=== PATIENT | male | born 1950 | race Caucasian/White ===

== ENCOUNTER 2020-07-24 10:33 | Outpatient (CLI) | payer MEDICARE ==
--- NOTE | 2020-07-24 11:18 | CT ---
CT HEAD WITHOUT IV CONTRAST COMPARISON: None HISTORY: Trouble walking straight. Dizziness. TECHNIQUE: Axial CT imaging at 5 mm intervals from vertex through skull base without contrast FINDINGS: There are scattered areas of diminished attenuation which are nonspecific but likely reflective of mi ld chronic small vessel ischemic changes. There is no evidence of an acute infarction, hemorrhage, mass effect, or midline shift. Mild cerebral volume loss is present. The ventricular system is normal in size, shape, and position for the degree of sulcal atrophy. Vascular calcifications are seen in the distal vertebral arteries and in the carotid siphons. Visualized paranasal sinuses are clear. Osseous structures appear intact. IMPRESSION: 1. No acute intracranial abnormality demonstrated. 2. Mild chronic small vessel ischemic changes and cerebral volume loss.
== END 2020-07-24 10:34 | disposition home or self-care (01) ==
LOC: BICCT 10:33
PROVIDERS: ATTEND Family Medicine
DX: R42 Dizziness and giddiness (principal); R26.9 Unspecified abnormalities of gait and mobility; I67.82 Cerebral ischemia
CPT/HCPCS: 70450

== ENCOUNTER 2020-08-25 09:17 | Outpatient (CLI) | payer MEDICARE ==
--- NOTE | 2020-08-25 11:01 | MRI ---
MRI of thecervical spine without contrast: 08/25/2020 COMPARISON:None available HISTORY:Numbness of bilateral shoulders, arms, legs, feet TECHNIQUE: Multiplanar multisequence MR imaging of thecervical spine without contrast Findings:The sagittal STIR imaging demonstrates no focal area of osseous marrow edema. No cervical spine anterolisthesis or retrolisthesis noted. C2-3: There is disc desiccation and minimal disc bulge with no central canal stenosis. There is moder ate left neural foraminal stenosis on the basis of facet and uncovertebral osteophyte formation. No right neural foraminal stenosis. C3-4: There is disc space narrowing with disc desiccation, disc bulge, and a small right paracentral disc protrusion. These findings lead to a moderate degree of central canal stenosis, particularly laterally on the right. There is prominent bilateral facet hypertrophy and hypertrophy of the uncover tebral joints, left greater than right, with mild right and severe left neural foraminal stenosis. C4-5: There is disc space narrowing with disc desiccation and disc bulge effacing the ventral thecal sac with mild mass effect on the cervical cord and severe associated central canal stenosis. Prominent bilateral facet hypertrophy and uncovertebral osteophyte formation with moderate/severe dinesh ateral neural foraminal stenosis, right greater than left. C5-6: There is disc space narrowing with disc desiccation with disc bulge effacing the ventral thecal sac and abutting the ventral aspect of the cord with a moderate/severe degree of central canal stenosis. Significant bilateral facet and uncovertebral osteophyte formation, left greater than right , with severe bilateral neural foraminal stenosis. C6-7: Bilateral facet hypertrophy. There is disc desiccation and mild disc bulge with mild central ca nal stenosis and mild/moderate bilateral neural foraminal stenosis, right greater than left. C7-T1: There is disc desiccation with no central canal stenosis. Bilateral facet hypertrophy noted wi th no significant neural foraminal stenosis. There is no focal area of abnormal signal intensity within the cervical cord. IMPRESSION:Significant multilevel cervical spine degenerative change as detailed above, most severe a t the C4-5 and C5-6 levels.
--- NOTE | 2020-08-25 11:29 | MRI ---
Exam: Brain MRI with and without contrast HISTORY: Transient ischemic attack COMPARISON: None FINDINGS: Gradient echo sequence: No hemorrhage Calvarium: Appropriate T1 marrow signal intensity Midline brain parenchyma: Unremarkable Cerebrum:No parenchymal mass, mass effect or midline shift. Brain volume is age-appropriate. Cortical courtney-white white matter differentiation is preserved. Minimal T2 and FLAIR white matter hyperintensities due to chronic small vessel ischemic change. Ventricles: No evidence of hydrocephalus. Sinuses and mastoid air cells: Right maxillary sinus mucus retention cysts. Minimal opacification of the right mastoid air cells. Diffusion: Central arterial flow is maintained. Absent restricted diffusion. Postcontrast images: No pathologic enhancement of the brain parenchyma. IMPRESSION: 1. Absent restricted diffusion. No acute infarct 2. No pathologic enhancement of the brain parenchyma 3. Minimal chronic small vessel ischemic changes of the white matter
[2020-08-25] MEDS ORDERED: Magnevist 469MG/ML 20 ML VIAL ONE (15:06)
== END 2020-08-25 09:18 | disposition home or self-care (01) ==
LOC: BICMRI 09:17
PROVIDERS: ATTEND Psychiatry & Neurology Neurology
DX: G45.9 Transient cerebral ischemic attack, unspecified (principal); I67.82 Cerebral ischemia; M47.812 Spondylosis without myelopathy or radiculopathy, cervical region
CPT/HCPCS: 70553; 72141; 82565; A9579

== ENCOUNTER 2020-10-18 10:58 | Outpatient (CLI) | payer MEDICARE ==
[2020-09-13 16:51] LABS: #Basophils 0.1 10x3/uL (0.0-0.2); #Eosinphils 0.2 10x3/uL (0.0-0.5); #Monocytes 0.7 10x3/uL (0.0-1.1); #Neutrophils 3.9 10x3/uL (1.5-8.4); %Basophils 1.6 % (0.0-2.0); %Eosinophils 3.6 % (0.0-6.0); %Lymphocytes 25.9 % (18.0-47.0); %Monocytes 10.9 % (0.0-10.0); %Neutrophils 57.6 % (40.0-75.0); Hemoglobin 14.9 g/dL (13.5-17.5); Mean Corpuscular HGB CONC 32.8 g/dL (32.0-36.0); Mean Corpuscular Hemoglobin 30.6 pg (27.0-33.0); Mean Corpuscular Volume 93.2 fl (81.2-95.1); Mean Platelet Volume 13.8 fl (7.4-10.4); Platelet Count 178 10x3/uL (150-450); RBC Distribution Width 12.7 % (11.5-14.5); Red Blood Cell (RBC) Count 4.87 10x6/uL (4.32-5.72); White Blood Cell (WBC) Count 6.7 10x3/uL (3.5-10.5)
[2020-09-13 17:12] LABS: Anion Gap 14 mmol/L (10-20); BUN (Urea Nitrogen) 15 mg/dL (8.4-25.7); Calc. Creatinine Clearance 0 mL/min (70-130); Calcium 9.5 mg/dL (7.8-10.44); Carbon Dioxide 29 mmol/L (23-31); Chloride 103 mmol/L (98-107); Glucose 144 mg/dL (83-110); Potassium 5.2 mmol/L (3.5-5.1); Sodium 141 mmol/L (136-145)
[2020-09-14 08:31] LABS: SARS-CoV-2 PCR by NAA Indeterminate (NotDetected)
[2020-09-16 05:48] LABS: SARS-CoV-2 PCR by NAA Not Detected (NotDetected)
[2020-10-18 14:14] LABS: Anion Gap 11 mmol/L (10-20); BUN (Urea Nitrogen) 18 mg/dL (8.4-25.7); Calc. Creatinine Clearance 0 mL/min (70-130); Calcium 8.9 mg/dL (7.8-10.44); Carbon Dioxide 27 mmol/L (23-31); Chloride 104 mmol/L (98-107); Glucose 256 mg/dL (83-110); Potassium 4.9 mmol/L (3.5-5.1); Sodium 137 mmol/L (136-145)
[2020-10-18 14:49] LABS: #Basophils 0.1 10x3/uL (0.0-0.2); #Eosinphils 0.3 10x3/uL (0.0-0.5); #Monocytes 0.6 10x3/uL (0.0-1.1); #Neutrophils 3.7 10x3/uL (1.5-8.4); %Basophils 1.3 % (0.0-2.0); %Eosinophils 4.8 % (0.0-6.0); %Lymphocytes 22.2 % (18.0-47.0); %Monocytes 9.9 % (0.0-10.0); %Neutrophils 61.1 % (40.0-75.0); Hemoglobin 14.4 g/dL (13.5-17.5); Mean Corpuscular Hemoglobin 30.6 pg (27.0-33.0); Mean Corpuscular Volume 92.6 fl (81.2-95.1); Mean Platelet Volume 13.5 fl (7.4-10.4); Platelet Count 147 10x3/uL (150-450); RBC Distribution Width 12.5 % (11.5-14.5); Red Blood Cell (RBC) Count 4.71 10x6/uL (4.32-5.72)
[2020-10-18 17:25] LABS: Platelet Morphology Comment Appears Adequate
[2020-10-18 22:07] LABS: SARS-CoV-2 PCR by NAA Not Detected (NotDetected)
== END 2020-10-18 10:59 | disposition home or self-care (01) ==
LOC: LABBT 10:58
PROVIDERS: ATTEND Internal Medicine Cardiovascular Disease
DX: Z01.818 Encounter for other preprocedural examination (principal); Z20.822 Contact with and (suspected) exposure to COVID-19
CPT/HCPCS: 80048; 85025; 93005; U0003 ×2; U0005 ×2; 87635; 93010

== ENCOUNTER 2020-10-23 06:00 | Day surgery (SDC) | payer MEDICARE ==
[2020-10-20 11:40] VITALS: BMI 29.5
[2020-10-23] MEDS ORDERED: PROPOFOL 200 MG/20 ML VIAL ONE (08:03)
[2020-10-23] MEDS ORDERED: Lidocaine 1% PF 5 ML VIAL ONE (08:03)
== END 2020-10-23 10:21 | disposition home or self-care (01) ==
LOC: CCL 06:00
PROVIDERS: ATTEND Internal Medicine Cardiovascular Disease
PROC: B24BZZ4 Ultrasonography of Heart with Aorta, Transesophageal (ICD-10-PCS; principal; 2020-10-23)
DX: I08.3 Combined rheumatic disorders of mitral, aortic and tricuspid valves (principal); I70.0 Atherosclerosis of aorta; I48.0 Paroxysmal atrial fibrillation; I48.92 Unspecified atrial flutter; E11.9 Type 2 diabetes mellitus without complications; E78.00 Pure hypercholesterolemia, unspecified; I10 Essential (primary) hypertension; E03.9 Hypothyroidism, unspecified; G47.33 Obstructive sleep apnea (adult) (pediatric); G40.909 Epilepsy, unspecified, not intractable, without status epilepticus; E66.9 Obesity, unspecified; Z68.29 Body mass index [BMI] 29.0-29.9, adult; Z79.01 Long term (current) use of anticoagulants; Z79.82 Long term (current) use of aspirin; Z79.84 Long term (current) use of oral hypoglycemic drugs; Z79.899 Other long term (current) drug therapy
CPT/HCPCS: 92960; 93005; 93010; 93312; J2704

== ENCOUNTER 2021-03-04 11:36 | Inpatient (IN) | payer MEDICARE ==
[2021-03-04 12:22] LABS: #Lymphocytes 0.9 thou/uL (1.20-3.40); #Monocytes 2.2 thou/uL (0.11-0.59); #Neutrophils 11.7 thou/uL (1.40-6.50); %Basophils 0.1 % (0.0-1.0); %Eosinophils 0.1 % (0.0-10.0); %Lymphocytes 6.2 % (21.0-51.0); %Monocytes 14.8 % (0.0-10.0); %Neutrophils 78.8 % (42.0-75.0); Hemoglobin 16.5 g/dL (14.0-18.0); Mean Corpuscular HGB CONC 33.8 g/dL (32.0-36.0); Mean Corpuscular Hemoglobin 31.4 pg (27.0-31.0); Mean Corpuscular Volume 92.8 fL (78.0-98.0); Mean Platelet Volume 10.8 fL (7.4-10.4); Platelet Count 275 thou/uL (130-400); Red Blood Cell (RBC) Count 5.25 mill/uL (4.70-6.10); White Blood Cell (WBC) Count 14.8 thou/uL (4.8-10.8)
[2021-03-04 12:43] LABS: ALT (SGPT) 35 U/L (8-55); AST (SGOT) 20 U/L (5-34); Albumin 3.4 g/dL (3.4-4.8); Alkaline Phosphatase 65 U/L (40-110); Anion Gap 16 mmol/L (10-20); BUN (Urea Nitrogen) 33 mg/dL (8.4-25.7); Bilirubin, Total 0.8 mg/dL (0.2-1.2); CK (CPK) 131 U/L (30-200); Calc. Creatinine Clearance 0 mL/min (70-130); Calcium 8.4 mg/dL (7.8-10.44); Carbon Dioxide 24 mmol/L (23-31); Chloride 105 mmol/L (98-107); Globulin 2.7 g/dL (2.4-3.5); Glucose 335 mg/dL (83-110); Lipase 11 U/L (8-78); Potassium 4.3 mmol/L (3.5-5.1); Protein, Total 6.1 g/dL (5.8-8.1); Sodium 141 mmol/L (136-145)
[2021-03-04 13:21] LABS: Bilirubin Negative (Negative); Blood, Urine Negative (Negative); Clarity Clear (Clear); Glucose, Urine (Dipstick) >=1000 mg/dL (Negative); Ketone, Urine 40 mg/dL (Negative); Leukocyte Negative Leu/uL (Negative); Nitrite Negative (Negative); Protein, Urine (Dipstick) 10 mg/dL (Neg-Trace); Urobilinogen Normal mg/dL (Less than 2); pH, Urine 5.5 (5.0-9.0)
[2021-03-04] MEDS ORDERED: Cefepime 2 GM VIAL ONE ×2 (13:23→13:34)
[2021-03-04] MEDS ORDERED: Vancomycin 1 GM/200 ML BAG ONE (13:23)
[2021-03-04 13:37] LABS: Magnesium 2.4 mg/dL (1.6-2.6)
[2021-03-04] MEDS ORDERED: Meropenem 1 GM in Sodium Chloride 0.9% 100 ML IVPB SCH (14:15)
[2021-03-04] MEDS ORDERED: MEROPENEM 1 GM/50 ML 1 GM in Premix Bag 1 BAG IVPB SCH ×3 (15:00→23:00)
[2021-03-04 15:24] LABS: Lactic Acid 2.1 mmol/L (0.5-2.2)
[2021-03-04 17:48] LABS: Troponin I 0.011 ng/mL (< 0.028)
[2021-03-04] MEDS ORDERED: Dextrose 50% Abboject 50 ML SYRINGE SLOW IVP PRN (18:21)
[2021-03-04] MEDS ORDERED: Dextrose 5% in Water 1,000 ML IV PRN (18:21)
[2021-03-04] MEDS ORDERED: Acetaminophen 325 MG TAB PO PRN (18:22)
[2021-03-04] MEDS ORDERED: Bisacodyl 10 MG SUPP PR PRN (18:22)
[2021-03-04] MEDS ORDERED: Senokot S 8.6-50 MG TAB PO PRN (18:22)
[2021-03-04] MEDS ORDERED: Acetaminophen 650 MG Suppository PR PRN (18:22)
[2021-03-04] MEDS ORDERED: Ondansetron PF 4 MG/2 ML Vial IVP PRN (18:22)
[2021-03-04] MEDS ORDERED: Ondansetron ODT 4 MG TAB PO PRN (18:22)
[2021-03-04] MEDS ORDERED: Calcium Carbonate 500 MG ChewTAB PO PRN (18:22)
[2021-03-04] MEDS ORDERED: D5W-AA 4.25% with LYTES 1,000 ML BAG IV SCH (18:30)
[2021-03-04] MEDS ORDERED: Electrolyte Replacement Protocol 1 EACH FS SCH (18:30)
[2021-03-04] MEDS ORDERED: D5W-AA 4.25% with LYTES 1,000 ML IV SCH (19:30)
[2021-03-04] MEDS: Metoprolol Tartrate 5 MG/5 ML VIAL IVP SCH ×2 (20:08→21:33)
[2021-03-04] MEDS ORDERED: Metoprolol Tartrate 5 MG/5 ML VIAL IVP SCH ×2 (21:00→21:30)
[2021-03-04] MEDS ORDERED: Famotidine/PF 20 mg/2ml Vial SLOW IVP SCH (21:00)
[2021-03-04] MEDS: Pantoprazole 40 MG VIAL IVP SCH (21:42)
[2021-03-04] MEDS: Insulin Regular 300 UNITS/3 ML VIAL SC PRN (21:58)
[2021-03-04] MEDS ORDERED: Lorazepam 2 MG/ML VIAL SLOW IVP SCH (22:00)
[2021-03-04] MEDS: Famotidine 20 MG TAB PO SCH (23:23)
[2021-03-04] MEDS: Apixaban 5 MG TAB PO SCH (23:23)
[2021-03-04] MEDS: Amiodarone 200 MG TAB PO SCH (23:23)
[2021-03-05] MEDS: Vancomycin 1 GM in Premix Bag 1 BAG IVPB SCH ×2 (02:07→14:49)
[2021-03-05] MEDS: MEROPENEM 1 GM/50 ML 1 GM in Premix Bag 1 BAG IVPB SCH ×3 (02:10→17:40)
[2021-03-05 05:02] LABS: #Eosinphils 0.1 thou/uL (0.0-0.7); #Monocytes 1.2 thou/uL (0.11-0.59); #Neutrophils 9.3 thou/uL (1.40-6.50); %Basophils 0.1 % (0.0-1.0); %Eosinophils 0.6 % (0.0-10.0); %Lymphocytes 8.4 % (21.0-51.0); %Monocytes 10.4 % (0.0-10.0); %Neutrophils 80.6 % (42.0-75.0); Hemoglobin 13.7 g/dL (14.0-18.0); Mean Corpuscular HGB CONC 32.5 g/dL (32.0-36.0); Mean Corpuscular Hemoglobin 30.6 pg (27.0-31.0); Mean Corpuscular Volume 94.2 fL (78.0-98.0); Mean Platelet Volume 10.8 fL (7.4-10.4); Platelet Count 191 thou/uL (130-400); Red Blood Cell (RBC) Count 4.49 mill/uL (4.70-6.10); White Blood Cell (WBC) Count 11.5 thou/uL (4.8-10.8)
[2021-03-05 05:26] LABS: Anion Gap 9 mmol/L (10-20); BUN (Urea Nitrogen) 26 mg/dL (8.4-25.7); Calc. Creatinine Clearance 102 mL/min (70-130); Carbon Dioxide 26 mmol/L (23-31); Chloride 105 mmol/L (98-107); Glucose 359 mg/dL (83-110); Magnesium 2.2 mg/dL (1.6-2.6); Phosphorus 3.2 mg/dL (2.3-4.7); Potassium 3.9 mmol/L (3.5-5.1); Sodium 136 mmol/L (136-145)
[2021-03-05] MEDS: Insulin Regular 300 UNITS/3 ML VIAL SC PRN ×3 (06:09→17:40)
[2021-03-05] MEDS: Levothyroxine Sodium 75 MCG TAB PO SCH (06:16)
[2021-03-05] MEDS ORDERED: Multivit, Therapeutic 1 TAB PO SCH (09:00)
[2021-03-05] MEDS: Lantus 1000 UNITS/10 ML VIAL SC SCH (09:54)
[2021-03-05] MEDS: Amiodarone 200 MG TAB PO SCH ×2 (11:55→22:30)
[2021-03-05] MEDS: Apixaban 5 MG TAB PO SCH ×2 (11:55→22:30)
[2021-03-05] MEDS: Famotidine 20 MG TAB PO SCH ×2 (11:55→22:30)
[2021-03-05] MEDS: Multivit, Therapeutic 1 TAB PO SCH ×2 (12:07→12:08)
[2021-03-05] MEDS: Folic Acid 1 MG TAB PO SCH (12:07)
[2021-03-05] MEDS: Aspirin 81 mg Enteric Coated Tablet PO SCH (12:07)
[2021-03-05] MEDS: Thiamine 100 MG TAB PO SCH (12:08)
[2021-03-05] MEDS: pyridOXINE 50 MG (B6) TAB PO SCH (12:08)
[2021-03-05] MEDS: Pantoprazole 40 MG VIAL IVP SCH (22:30)
[2021-03-06] MEDS: Metoprolol Tartrate 5 MG/5 ML VIAL IVP SCH (00:13)
[2021-03-06 01:34] LABS: Vancomycin, Trough 12.1 ug/mL
[2021-03-06] MEDS: MEROPENEM 1 GM/50 ML 1 GM in Premix Bag 1 BAG IVPB SCH ×3 (02:05→17:48)
[2021-03-06] MEDS: VANCOMYCIN 1.25 GM/250 ML BAG 1.25 GM in Premix Bag 1 BAG IVPB SCH ×2 (02:07→15:01)
[2021-03-06] MEDS ORDERED: Metoprolol Tartrate 25 MG TAB PO SCH (03:00)
[2021-03-06] MEDS: Melatonin 3 MG TAB PO PRN (03:39)
[2021-03-06 05:24] LABS: Hemoglobin A1c 7.4 % (4.0-6.0)
[2021-03-06 05:36] LABS: #Eosinphils 0.4 thou/uL (0.0-0.7); #Lymphocytes 1.5 thou/uL (1.20-3.40); #Neutrophils 10.1 thou/uL (1.40-6.50); %Basophils 0.1 % (0.0-1.0); %Lymphocytes 11.5 % (21.0-51.0); %Monocytes 7.4 % (0.0-10.0); %Neutrophils 77.9 % (42.0-75.0); Hemoglobin 14.5 g/dL (14.0-18.0); Mean Corpuscular HGB CONC 32.7 g/dL (32.0-36.0); Mean Corpuscular Hemoglobin 30.7 pg (27.0-31.0); Mean Corpuscular Volume 93.9 fL (78.0-98.0); Platelet Count 169 thou/uL (130-400); RBC Distribution Width 12.7 % (11.5-14.5); Red Blood Cell (RBC) Count 4.72 mill/uL (4.70-6.10); White Blood Cell (WBC) Count 12.9 thou/uL (4.8-10.8)
[2021-03-06 05:44] LABS: ALT (SGPT) 26 U/L (8-55); AST (SGOT) 22 U/L (5-34); Albumin 2.6 g/dL (3.4-4.8); Alkaline Phosphatase 53 U/L (40-110); Anion Gap 10 mmol/L (10-20); BUN (Urea Nitrogen) 20 mg/dL (8.4-25.7); Bilirubin, Total 0.9 mg/dL (0.2-1.2); Calc. Creatinine Clearance 120 mL/min (70-130); Carbon Dioxide 27 mmol/L (23-31); Chloride 101 mmol/L (98-107); Globulin 2.3 g/dL (2.4-3.5); Glucose 144 mg/dL (83-110); Phosphorus 3.4 mg/dL (2.3-4.7); Potassium 3.7 mmol/L (3.5-5.1); Protein, Total 4.9 g/dL (5.8-8.1); Sodium 134 mmol/L (136-145)
[2021-03-06] MEDS: Levothyroxine Sodium 75 MCG TAB PO SCH (06:08)
[2021-03-06] MEDS: Aspirin 81 mg Enteric Coated Tablet PO SCH (08:59)
[2021-03-06] MEDS: Amiodarone 200 MG TAB PO SCH ×2 (08:59→22:40)
[2021-03-06] MEDS: pyridOXINE 50 MG (B6) TAB PO SCH (08:59)
[2021-03-06] MEDS: Thiamine 100 MG TAB PO SCH (08:59)
[2021-03-06] MEDS: Apixaban 5 MG TAB PO SCH ×2 (09:00→22:39)
[2021-03-06] MEDS: Famotidine 20 MG TAB PO SCH ×2 (09:00→22:40)
[2021-03-06] MEDS: Folic Acid 1 MG TAB PO SCH (09:00)
[2021-03-06] MEDS: Lantus 1000 UNITS/10 ML VIAL SC SCH (09:01)
[2021-03-06] MEDS: Insulin Regular 300 UNITS/3 ML VIAL SC PRN ×2 (12:12→22:41)
[2021-03-06] MEDS: Pantoprazole 40 MG VIAL IVP SCH (22:40)
[2021-03-07] MEDS: Metoprolol Tartrate 5 MG/5 ML VIAL IVP SCH (02:26)
[2021-03-07] MEDS: MEROPENEM 1 GM/50 ML 1 GM in Premix Bag 1 BAG IVPB SCH ×2 (02:49→10:56)
[2021-03-07] MEDS: VANCOMYCIN 1.25 GM/250 ML BAG 1.25 GM in Premix Bag 1 BAG IVPB SCH (02:49)
[2021-03-07 05:25] LABS: #Eosinphils 0.3 thou/uL (0.0-0.7); #Lymphocytes 1.6 thou/uL (1.20-3.40); #Monocytes 0.8 thou/uL (0.11-0.59); #Neutrophils 11.2 thou/uL (1.40-6.50); %Basophils 0.1 % (0.0-1.0); %Eosinophils 2.4 % (0.0-10.0); %Lymphocytes 11.7 % (21.0-51.0); %Monocytes 5.4 % (0.0-10.0); %Neutrophils 80.5 % (42.0-75.0); Hemoglobin 15.6 g/dL (14.0-18.0); Mean Corpuscular HGB CONC 32.1 g/dL (32.0-36.0); Mean Corpuscular Hemoglobin 30.3 pg (27.0-31.0); Mean Corpuscular Volume 94.1 fL (78.0-98.0); Mean Platelet Volume 10.9 fL (7.4-10.4); Platelet Count 173 thou/uL (130-400); Red Blood Cell (RBC) Count 5.16 mill/uL (4.70-6.10); White Blood Cell (WBC) Count 13.9 thou/uL (4.8-10.8)
[2021-03-07] MEDS: Levothyroxine Sodium 75 MCG TAB PO SCH (05:32)
[2021-03-07 05:51] LABS: Anion Gap 9 mmol/L (10-20); BUN (Urea Nitrogen) 17 mg/dL (8.4-25.7); Calc. Creatinine Clearance 103 mL/min (70-130); Carbon Dioxide 29 mmol/L (23-31); Chloride 99 mmol/L (98-107); Glucose 151 mg/dL (83-110); Sodium 133 mmol/L (136-145)
[2021-03-07] MEDS: Insulin Regular 300 UNITS/3 ML VIAL SC PRN ×4 (06:03→21:15)
[2021-03-07] MEDS: Aspirin 81 mg Enteric Coated Tablet PO SCH (08:33)
[2021-03-07] MEDS: Apixaban 5 MG TAB PO SCH ×2 (08:33→21:13)
[2021-03-07] MEDS: Multivit, Therapeutic 1 TAB PO SCH (08:33)
[2021-03-07] MEDS: pyridOXINE 50 MG (B6) TAB PO SCH (08:33)
[2021-03-07] MEDS: Famotidine 20 MG TAB PO SCH ×2 (08:33→21:13)
[2021-03-07] MEDS: Folic Acid 1 MG TAB PO SCH (08:33)
[2021-03-07] MEDS: Amiodarone 200 MG TAB PO SCH ×2 (08:34→21:13)
[2021-03-07] MEDS: Thiamine 100 MG TAB PO SCH (08:34)
[2021-03-07] MEDS: Lantus 1000 UNITS/10 ML VIAL SC SCH (08:35)
[2021-03-07 13:54] VITALS: BMI 27.3
[2021-03-07] MEDS: Pantoprazole 40 MG VIAL IVP SCH (21:13)
[2021-03-07] MEDS: Metoprolol Tartrate 25 MG TAB PO SCH (21:36)
[2021-03-08] MEDS: Levothyroxine Sodium 75 MCG TAB PO SCH (06:44)
[2021-03-08] MEDS: Insulin Regular 300 UNITS/3 ML VIAL SC PRN ×3 (06:48→17:12)
[2021-03-08] MEDS: Apixaban 5 MG TAB PO SCH ×2 (09:04→21:28)
[2021-03-08] MEDS: Aspirin 81 mg Enteric Coated Tablet PO SCH (09:04)
[2021-03-08] MEDS: Famotidine 20 MG TAB PO SCH ×2 (09:04→21:27)
[2021-03-08] MEDS: Metoprolol Tartrate 25 MG TAB PO SCH ×2 (09:04→21:28)
[2021-03-08] MEDS: Thiamine 100 MG TAB PO SCH (09:04)
[2021-03-08] MEDS: Multivit, Therapeutic 1 TAB PO SCH (09:04)
[2021-03-08] MEDS: Amiodarone 200 MG TAB PO SCH ×2 (09:04→21:28)
[2021-03-08] MEDS: Folic Acid 1 MG TAB PO SCH (09:04)
[2021-03-08] MEDS: pyridOXINE 50 MG (B6) TAB PO SCH (09:04)
[2021-03-08] MEDS: Lantus 1000 UNITS/10 ML VIAL SC SCH (09:05)
[2021-03-08 15:04] LABS: SARS-CoV-2 NAA Rapid Test Not Detected (NotDetected)
[2021-03-08] MEDS: Pantoprazole 40 MG VIAL IVP SCH (21:27)
[2021-03-09] MEDS: Levothyroxine Sodium 75 MCG TAB PO SCH (06:14)
[2021-03-09] MEDS: Folic Acid 1 MG TAB PO SCH (09:56)
[2021-03-09] MEDS: Amiodarone 200 MG TAB PO SCH ×2 (09:56→20:08)
[2021-03-09] MEDS: pyridOXINE 50 MG (B6) TAB PO SCH (09:56)
[2021-03-09] MEDS: Apixaban 5 MG TAB PO SCH ×2 (09:56→20:08)
[2021-03-09] MEDS: Multivit, Therapeutic 1 TAB PO SCH (09:56)
[2021-03-09] MEDS: Aspirin 81 mg Enteric Coated Tablet PO SCH (09:56)
[2021-03-09] MEDS: Thiamine 100 MG TAB PO SCH (09:56)
[2021-03-09] MEDS: Metoprolol Tartrate 25 MG TAB PO SCH ×2 (09:56→20:08)
[2021-03-09] MEDS: Famotidine 20 MG TAB PO SCH (09:56)
[2021-03-09] MEDS: Lantus 1000 UNITS/10 ML VIAL SC SCH (09:58)
[2021-03-09] MEDS: Insulin Regular 300 UNITS/3 ML VIAL SC PRN ×2 (17:09→21:40)
[2021-03-10] MEDS: Levothyroxine Sodium 75 MCG TAB PO SCH (06:05)
[2021-03-10] MEDS: Amiodarone 200 MG TAB PO SCH ×2 (09:16→20:38)
[2021-03-10] MEDS: Metoprolol Tartrate 25 MG TAB PO SCH ×2 (09:16→20:38)
[2021-03-10] MEDS: Folic Acid 1 MG TAB PO SCH (09:16)
[2021-03-10] MEDS: pyridOXINE 50 MG (B6) TAB PO SCH (09:16)
[2021-03-10] MEDS: Multivit, Therapeutic 1 TAB PO SCH (09:16)
[2021-03-10] MEDS: Aspirin 81 mg Enteric Coated Tablet PO SCH (09:16)
[2021-03-10] MEDS: Apixaban 5 MG TAB PO SCH ×2 (09:16→20:38)
[2021-03-10] MEDS: Thiamine 100 MG TAB PO SCH (09:16)
[2021-03-10] MEDS: Lantus 1000 UNITS/10 ML VIAL SC SCH (09:21)
[2021-03-10] MEDS: Insulin Regular 300 UNITS/3 ML VIAL SC PRN ×2 (11:13→17:31)
[2021-03-10] MEDS: ALPRAZolam 0.25 MG TAB PO PRN (12:26)
[2021-03-10] MEDS: Melatonin 3 MG TAB PO PRN (22:32)
[2021-03-11 02:39] LABS: #Eosinphils 0.2 thou/uL (0.0-0.7); #Lymphocytes 1.7 thou/uL (1.20-3.40); #Monocytes 0.8 thou/uL (0.11-0.59); #Neutrophils 6.6 thou/uL (1.40-6.50); %Basophils 0.5 % (0.0-1.0); %Lymphocytes 18.2 % (21.0-51.0); %Neutrophils 70.3 % (42.0-75.0); Hemoglobin 16.5 g/dL (14.0-18.0); Mean Corpuscular HGB CONC 34.4 g/dL (32.0-36.0); Mean Corpuscular Hemoglobin 31.7 pg (27.0-31.0); Mean Corpuscular Volume 92.3 fL (78.0-98.0); Mean Platelet Volume 11.7 fL (7.4-10.4); Platelet Count 158 thou/uL (130-400); RBC Distribution Width 13.2 % (11.5-14.5); White Blood Cell (WBC) Count 9.4 thou/uL (4.8-10.8)
[2021-03-11 02:56] LABS: Anion Gap 10 mmol/L (10-20); BUN (Urea Nitrogen) 16 mg/dL (8.4-25.7); Calc. Creatinine Clearance 93 mL/min (70-130); Calcium 8.6 mg/dL (7.8-10.44); Carbon Dioxide 29 mmol/L (23-31); Chloride 98 mmol/L (98-107); Glucose 183 mg/dL (83-110); Potassium 4.2 mmol/L (3.5-5.1); Sodium 133 mmol/L (136-145)
[2021-03-11] MEDS: Levothyroxine Sodium 75 MCG TAB PO SCH (05:44)
[2021-03-11] MEDS: Insulin Regular 300 UNITS/3 ML VIAL SC PRN ×4 (05:46→21:29)
[2021-03-11] MEDS: Amiodarone 200 MG TAB PO SCH ×2 (10:07→20:23)
[2021-03-11] MEDS: Apixaban 5 MG TAB PO SCH ×2 (10:07→20:23)
[2021-03-11] MEDS: Aspirin 81 mg Enteric Coated Tablet PO SCH (10:07)
[2021-03-11] MEDS: Multivit, Therapeutic 1 TAB PO SCH (10:07)
[2021-03-11] MEDS: Folic Acid 1 MG TAB PO SCH (10:08)
[2021-03-11] MEDS: pyridOXINE 50 MG (B6) TAB PO SCH (10:08)
[2021-03-11] MEDS: Metoprolol Tartrate 25 MG TAB PO SCH ×2 (10:08→20:23)
[2021-03-11] MEDS: Thiamine 100 MG TAB PO SCH (10:08)
[2021-03-11] MEDS: Lantus 1000 UNITS/10 ML VIAL SC SCH (10:08)
[2021-03-11] MEDS: ALPRAZolam 0.25 MG TAB PO PRN (22:44)
[2021-03-12] MEDS: Levothyroxine Sodium 75 MCG TAB PO SCH (05:27)
[2021-03-12] MEDS: Aspirin 81 mg Enteric Coated Tablet PO SCH (08:04)
[2021-03-12] MEDS: Apixaban 5 MG TAB PO SCH (08:04)
[2021-03-12] MEDS: Amiodarone 200 MG TAB PO SCH (08:04)
[2021-03-12] MEDS: pyridOXINE 50 MG (B6) TAB PO SCH (08:05)
[2021-03-12] MEDS: Folic Acid 1 MG TAB PO SCH (08:05)
[2021-03-12] MEDS: Multivit, Therapeutic 1 TAB PO SCH (08:05)
[2021-03-12] MEDS: Metoprolol Tartrate 25 MG TAB PO SCH (08:05)
[2021-03-12] MEDS: Thiamine 100 MG TAB PO SCH (08:05)
[2021-03-12] MEDS: Lantus 1000 UNITS/10 ML VIAL SC SCH (08:14)
[2021-03-12] MEDS: Insulin Regular 300 UNITS/3 ML VIAL SC PRN (11:29)
[2021-03-12 15:02] VITALS: BP 116/73; TEMP 98.1
== END 2021-03-12 16:45 | DRG 871 ==
LOC: ERS 11:36 → 2NO 13:26
PROVIDERS: ADMIT Internal Medicine; ATTEND Internal Medicine
PROC: 5A09357 Assistance with Respiratory Ventilation, Less than 24 Consecutive Hours, Continuous Positive Airway Pressure (ICD-10-PCS; principal; 2021-03-04)
DX: A41.9 Sepsis, unspecified organism (principal); Z20.822 Contact with and (suspected) exposure to COVID-19; G92 Toxic encephalopathy; J15.9 Unspecified bacterial pneumonia; E87.2 Acidosis; E87.1 Hypo-osmolality and hyponatremia; I48.20 Chronic atrial fibrillation, unspecified; I48.92 Unspecified atrial flutter; R65.20 Severe sepsis without septic shock; T73.0XXA Starvation, initial encounter; E53.8 Deficiency of other specified B group vitamins; E88.09 Other disorders of plasma-protein metabolism, not elsewhere classified; E86.0 Dehydration; E78.5 Hyperlipidemia, unspecified; I10 Essential (primary) hypertension; F41.9 Anxiety disorder, unspecified; G47.00 Insomnia, unspecified; E03.9 Hypothyroidism, unspecified; G47.33 Obstructive sleep apnea (adult) (pediatric); E11.65 Type 2 diabetes mellitus with hyperglycemia; R29.6 Repeated falls; R09.02 Hypoxemia; M50.30 Other cervical disc degeneration, unspecified cervical region; Z86.16 Personal history of COVID-19; Z28.21 Immunization not carried out because of patient refusal; Z87.01 Personal history of pneumonia (recurrent); Z79.899 Other long term (current) drug therapy; Z79.890 Hormone replacement therapy; Z79.01 Long term (current) use of anticoagulants; Z79.82 Long term (current) use of aspirin; Z79.84 Long term (current) use of oral hypoglycemic drugs; Z90.89 Acquired absence of other organs
CPT/HCPCS: 36415; 36416; 51701; 70450; 71045; 80048; 80053; 80202; 81003; 82010; 82140; 82533; 82550; 82607; 82746; 83036; 83605; 83690; 83735; 83880; 84100; 84145; 84443; 84484; 85025; 86140; 87040; 93005; 93010; 94640; 94660; 96365; 96366; C9113; J0692; J1815; J1956; J2060; J2185; J3370; J7620; U0002; U0005

== ENCOUNTER 2021-04-25 09:31 | Emergency (ER) | payer MEDICARE ==
[2021-04-25 10:55] LABS: #Eosinphils 0.2 thou/uL (0.0-0.7); #Lymphocytes 1.6 thou/uL (1.20-3.40); #Monocytes 0.8 thou/uL (0.11-0.59); #Neutrophils 5.2 thou/uL (1.40-6.50); %Basophils 0.3 % (0.0-1.0); %Eosinophils 2.2 % (0.0-10.0); %Lymphocytes 20.2 % (21.0-51.0); %Monocytes 10.8 % (0.0-10.0); %Neutrophils 66.5 % (42.0-75.0); Hemoglobin 14.2 g/dL (14.0-18.0); Mean Corpuscular HGB CONC 32.5 g/dL (32.0-36.0); Mean Corpuscular Hemoglobin 30.7 pg (27.0-31.0); Mean Corpuscular Volume 94.5 fL (78.0-98.0); Mean Platelet Volume 10.9 fL (7.4-10.4); Platelet Count 175 thou/uL (130-400); Red Blood Cell (RBC) Count 4.63 mill/uL (4.70-6.10); White Blood Cell (WBC) Count 7.8 thou/uL (4.8-10.8)
[2021-04-25 11:15] LABS: ALT (SGPT) 25 U/L (8-55); AST (SGOT) 16 U/L (5-34); Albumin 3.6 g/dL (3.4-4.8); Alkaline Phosphatase 86 U/L (40-110); Anion Gap 15 mmol/L (10-20); BUN (Urea Nitrogen) 14 mg/dL (8.4-25.7); Bilirubin, Total 0.5 mg/dL (0.2-1.2); Calc. Creatinine Clearance 0 mL/min (70-130); Calcium 9.2 mg/dL (7.8-10.44); Carbon Dioxide 26 mmol/L (23-31); Chloride 99 mmol/L (98-107); Globulin 2.5 g/dL (2.4-3.5); Glucose 160 mg/dL (83-110); Protein, Total 6.1 g/dL (5.8-8.1); Sodium 136 mmol/L (136-145)
[2021-04-25 11:16] LABS: Acetaminophen Less than 6.0 mcg/mL (10.0-30.0); Alcohol Less than 10 mg/dL (Less than 10); Salicylate Less than 8.0 mg/dL (15.0-30.0)
[2021-04-25 12:24] LABS: Amphetamine Not Detected (NotDetected); Barbiturates Screen Not Detected (NotDetected); Benzodiazepine Screen Not Detected (NotDetected); Cocaine Metabolite Screen Not Detected (NotDetected); Methadone Not Detected (NotDetected); Methamphetamine Not Detected (NotDetected); Opiate Screen Not Detected (NotDetected); Oxycodone Screen Not Detected (NotDetected); Phencyclidine (PCP) Not Detected (NotDetected); THC/Cannabinoid Screen Not Detected (NotDetected); Tricyclic Screen Not Detected (NotDetected)
[2021-04-25 12:32] LABS: Bilirubin Negative (Negative); Blood, Urine Negative (Negative); Clarity Clear (Clear); Glucose, Urine (Dipstick) Normal (Negative); Ketone, Urine Negative (Negative); Leukocyte Negative Leu/uL (Negative); Nitrite Negative (Negative); Protein, Urine (Dipstick) Negative (Neg-Trace); Specific Gravity, Urine 1.008 (1.002-1.036); Urobilinogen Normal mg/dL (Less than 2)
[2021-04-25 22:06] LABS: SARS-CoV-2 NAA Rapid Test Not Detected (NotDetected)
[2021-04-26] MEDS ORDERED: traZODone HCl 50 MG TAB ONE (03:54)
== END 2021-04-25 16:18 ==
LOC: ERS 09:31
DX: R41.82 Altered mental status, unspecified (principal); Z20.822 Contact with and (suspected) exposure to COVID-19; I48.91 Unspecified atrial fibrillation; E11.9 Type 2 diabetes mellitus without complications; K21.9 Gastro-esophageal reflux disease without esophagitis; E78.5 Hyperlipidemia, unspecified; I10 Essential (primary) hypertension; G47.30 Sleep apnea, unspecified; Z87.01 Personal history of pneumonia (recurrent); Z79.899 Other long term (current) drug therapy; Z79.84 Long term (current) use of oral hypoglycemic drugs
CPT/HCPCS: 70450; 80306; 80307; 81003; 82962; 93005; U0002; 36415; 36416; 80053; 84443; 85025

== ENCOUNTER 2021-05-09 16:36 | Emergency (ER) | payer MEDICARE ==
[2021-05-09 17:49] LABS: #Basophils 0.1 thou/uL (0.0-0.2); #Eosinphils 0.1 thou/uL (0.0-0.7); #Lymphocytes 1.9 thou/uL (1.20-3.40); #Monocytes 0.9 thou/uL (0.11-0.59); %Basophils 0.8 % (0.0-1.0); %Eosinophils 1.6 % (0.0-10.0); %Lymphocytes 23.5 % (21.0-51.0); %Monocytes 11.5 % (0.0-10.0); %Neutrophils 62.7 % (42.0-75.0); Hemoglobin 13.7 g/dL (14.0-18.0); Mean Corpuscular HGB CONC 33.5 g/dL (32.0-36.0); Mean Corpuscular Hemoglobin 32.2 pg (27.0-31.0); Mean Platelet Volume 11.1 fL (7.4-10.4); Platelet Count 148 thou/uL (130-400); RBC Distribution Width 14.7 % (11.5-14.5); Red Blood Cell (RBC) Count 4.26 mill/uL (4.70-6.10); White Blood Cell (WBC) Count 7.9 thou/uL (4.8-10.8)
[2021-05-09 18:15] LABS: ALT (SGPT) 23 U/L (8-55); AST (SGOT) 21 U/L (5-34); Albumin 3.5 g/dL (3.4-4.8); Alkaline Phosphatase 97 U/L (40-110); Anion Gap 10 mmol/L (10-20); BUN (Urea Nitrogen) 35 mg/dL (8.4-25.7); Bilirubin, Total 0.4 mg/dL (0.2-1.2); Calc. Creatinine Clearance 0 mL/min (70-130); Calcium 9.1 mg/dL (7.8-10.44); Carbon Dioxide 28 mmol/L (23-31); Chloride 106 mmol/L (98-107); Globulin 2.6 g/dL (2.4-3.5); Glucose 314 mg/dL (83-110); Potassium 4.2 mmol/L (3.5-5.1); Protein, Total 6.1 g/dL (5.8-8.1); Sodium 140 mmol/L (136-145)
== END 2021-05-09 19:45 | disposition home or self-care (01) ==
LOC: ERS 16:36
DX: R06.00 Dyspnea, unspecified (principal); I48.91 Unspecified atrial fibrillation; E11.9 Type 2 diabetes mellitus without complications; E78.5 Hyperlipidemia, unspecified; K21.9 Gastro-esophageal reflux disease without esophagitis
CPT/HCPCS: 71045; 80053; 84484; 85025; 93005

== ENCOUNTER 2021-05-11 16:41 | Emergency (ER) | payer MEDICARE ==
[2021-05-11 17:33] LABS: #Basophils 0.1 thou/uL (0.0-0.2); #Eosinphils 0.2 thou/uL (0.0-0.7); #Lymphocytes 2.5 thou/uL (1.20-3.40); #Neutrophils 5.9 thou/uL (1.40-6.50); %Basophils 0.5 % (0.0-1.0); %Eosinophils 2.4 % (0.0-10.0); %Lymphocytes 26.2 % (21.0-51.0); %Monocytes 9.8 % (0.0-10.0); Hemoglobin 14.4 g/dL (14.0-18.0); Mean Corpuscular HGB CONC 34.2 g/dL (32.0-36.0); Mean Corpuscular Hemoglobin 32.4 pg (27.0-31.0); Mean Corpuscular Volume 94.9 fL (78.0-98.0); Platelet Count 153 thou/uL (130-400); RBC Distribution Width 14.6 % (11.5-14.5); Red Blood Cell (RBC) Count 4.43 mill/uL (4.70-6.10); White Blood Cell (WBC) Count 9.6 thou/uL (4.8-10.8)
[2021-05-11 18:03] LABS: Calcium 8.8 mg/dL (7.8-10.44); Chloride 107 mmol/L (98-107); Potassium 4.1 mmol/L (3.5-5.1); Sodium 141 mmol/L (136-145)
[2021-05-11 18:23] LABS: Alcohol Less than 10 mg/dL (Less than 10)
[2021-05-11 18:26] LABS: Acetaminophen Less than 6.0 mcg/mL (10.0-30.0); Salicylate Less than 8.0 mg/dL (15.0-30.0)
[2021-05-11 18:28] LABS: ALT (SGPT) 36 U/L (8-55); AST (SGOT) 32 U/L (5-34); Albumin 3.7 g/dL (3.4-4.8); Alkaline Phosphatase 89 U/L (40-110); Anion Gap 18 mmol/L (10-20); BUN (Urea Nitrogen) 28 mg/dL (8.4-25.7); Bilirubin, Total 0.5 mg/dL (0.2-1.2); CK (CPK) 42 U/L (30-200); Calc. Creatinine Clearance 0 mL/min (70-130); Carbon Dioxide 20 mmol/L (23-31); Globulin 2.7 g/dL (2.4-3.5); Glucose 103 mg/dL (83-110); Protein, Total 6.4 g/dL (5.8-8.1)
[2021-05-11] MEDS ORDERED: Metoprolol Tartrate 50 MG TAB ONE (21:06)
[2021-05-12 07:11] LABS: Bilirubin Negative (Negative); Blood, Urine Negative (Negative); Clarity Clear (Clear); Glucose, Urine (Dipstick) Normal (Negative); Ketone, Urine Trace mg/dL (Negative); Leukocyte Negative Leu/uL (Negative); Nitrite Negative (Negative); Protein, Urine (Dipstick) Negative (Neg-Trace); Specific Gravity, Urine 1.022 (1.002-1.036); Urobilinogen Normal mg/dL (Less than 2); pH, Urine 5.5 (5.0-9.0)
[2021-05-12 07:20] LABS: Amphetamine Not Detected (NotDetected); Barbiturates Screen Not Detected (NotDetected); Benzodiazepine Screen Not Detected (NotDetected); Cocaine Metabolite Screen Not Detected (NotDetected); Methadone Not Detected (NotDetected); Methamphetamine Not Detected (NotDetected); Opiate Screen Not Detected (NotDetected); Oxycodone Screen Not Detected (NotDetected); Phencyclidine (PCP) Not Detected (NotDetected); THC/Cannabinoid Screen Not Detected (NotDetected); Tricyclic Screen Not Detected (NotDetected)
[2021-05-12] MEDS ORDERED: Apixaban 5 MG TAB PO SCH (09:00)
[2021-05-12] MEDS ORDERED: Metoprolol Tartrate 50 MG TAB PO SCH (09:00)
[2021-05-12] MEDS ORDERED: Dronedarone HCl 400 MG TAB PO SCH (09:00)
[2021-05-12] MEDS ORDERED: Acetaminophen 325 MG TAB ONE (09:12)
== END 2021-05-12 12:31 ==
LOC: ERS 16:41
DX: R45.851 Suicidal ideations (principal); R45.850 Homicidal ideations; I48.91 Unspecified atrial fibrillation; E11.9 Type 2 diabetes mellitus without complications; E78.5 Hyperlipidemia, unspecified; G47.30 Sleep apnea, unspecified; H05.20 Unspecified exophthalmos; H55.00 Unspecified nystagmus; K42.9 Umbilical hernia without obstruction or gangrene; K21.9 Gastro-esophageal reflux disease without esophagitis; Z86.16 Personal history of COVID-19; Z79.01 Long term (current) use of anticoagulants; Z79.84 Long term (current) use of oral hypoglycemic drugs; Z79.82 Long term (current) use of aspirin
CPT/HCPCS: 36415; 70450; 80053; 80306; 80307; 81003; 82550; 84443; 85025; 93005

== ENCOUNTER 2021-06-06 09:11 | Inpatient (IN) | payer MEDICARE ==
[2021-06-06 10:54] LABS: Mean Corpuscular HGB CONC 34.2 g/dL (32.0-36.0); Mean Corpuscular Hemoglobin 32.6 pg (27.0-31.0); Mean Corpuscular Volume 95.4 fL (78.0-98.0); Mean Platelet Volume 11.4 fL (7.4-10.4); Platelet Count 134 thou/uL (130-400); RBC Distribution Width 14.8 % (11.5-14.5); Red Blood Cell (RBC) Count 3.69 mill/uL (4.70-6.10); White Blood Cell (WBC) Count 9.6 thou/uL (4.8-10.8)
[2021-06-06] MEDS ORDERED: Cefepime 2 GM VIAL ONE (11:13)
[2021-06-06] MEDS ORDERED: Metoprolol Tartrate 25 MG TAB ONE (11:13)
[2021-06-06 11:14] LABS: ALT (SGPT) 53 U/L (8-55); AST (SGOT) 28 U/L (5-34); Albumin 3.2 g/dL (3.4-4.8); Alkaline Phosphatase 71 U/L (40-110); Anion Gap 13 mmol/L (10-20); BUN (Urea Nitrogen) 15 mg/dL (8.4-25.7); Bilirubin, Total 0.8 mg/dL (0.2-1.2); Calc. Creatinine Clearance 0 mL/min (70-130); Calcium 8.7 mg/dL (7.8-10.44); Carbon Dioxide 29 mmol/L (23-31); Chloride 97 mmol/L (98-107); Globulin 3.6 g/dL (2.4-3.5); Glucose 132 mg/dL (83-110); Potassium 4.4 mmol/L (3.5-5.1); Protein, Total 6.8 g/dL (5.8-8.1); Sodium 135 mmol/L (136-145)
[2021-06-06 11:15] LABS: Band 10 % (5-11); Lymphocytes 10 % (21-51); MDiff Complete? YES; Monocytes 13 % (0-10); Neutrophil 65 % (42-75); Platelet Morphology Comment Appears Adequate; RBC Morphology Normal; Reactive Lymphocytes 2 % (0-10)
[2021-06-06] MEDS ORDERED: Morphine 4 MG/ML VIAL ONE (11:42)
[2021-06-06] MEDS ORDERED: VANCOMYCIN 2 GRAM/400 ML BAG 2 GM in Premix Bag 1 BAG IVPB SCH (12:15)
[2021-06-06] MEDS ORDERED: Acetaminophen 650 MG Suppository PR PRN (14:40)
[2021-06-06] MEDS ORDERED: Dextrose 50% Abboject 50 ML SYRINGE SLOW IVP PRN (14:40)
[2021-06-06] MEDS ORDERED: Dextrose 5% in Water 1,000 ML IV PRN (14:40)
[2021-06-06 14:46] LABS: Troponin I 0.012 ng/mL (< 0.028)
[2021-06-06] MEDS ORDERED: Furosemide 40 MG/4 ML VIAL SLOW IVP SCH (15:30)
[2021-06-06 15:39] VITALS: BMI 29.6
[2021-06-06] MEDS: Acetaminophen 325 MG TAB PO PRN (17:09)
[2021-06-06] MEDS: Diltiazem 125 MG in Sodium Chloride 0.9% 100 ML IVPB SCH (17:22)
[2021-06-06 17:57] LABS: Troponin I Less than 0.010 ng/mL (< 0.028)
[2021-06-06] MEDS: Cefepime 2 GM in Sodium Chloride 0.9% 100 ML IVPB SCH (18:50)
[2021-06-06 20:14] LABS: Legionella Urinary Ag Negative (Negative); Strep pneumo Urine Ag NEGATIVE (NEGATIVE)
[2021-06-06] MEDS ORDERED: Cefepime 2 GM in Sodium Chloride 0.9% 100 ML IVPB SCH (21:00)
[2021-06-06] MEDS ORDERED: traZODone HCl 50 MG TAB PO SCH (21:00)
[2021-06-06] MEDS: Divalproex Sodium 250 MG (DR) TAB PO SCH (21:51)
[2021-06-06] MEDS: OLANZapine 5 MG TAB PO SCH (21:51)
[2021-06-06] MEDS: traZODone HCl 50 MG TAB PO SCH (21:51)
[2021-06-06] MEDS: Apixaban 5 MG TAB PO SCH (21:52)
[2021-06-06 23:49] LABS: SARS-CoV-2 PCR by NAA Not Detected (NotDetected)
[2021-06-07] MEDS: Vancomycin 1.5 GRAM/300 ML BAG 1.5 GM in Premix Bag 1 BAG IVPB SCH ×2 (01:02→12:56)
[2021-06-07] MEDS: Cefepime 2 GM in Sodium Chloride 0.9% 100 ML IVPB SCH ×3 (02:58→18:20)
[2021-06-07 04:37] LABS: #Eosinphils 0.1 thou/uL (0.0-0.7); #Lymphocytes 1.1 thou/uL (1.20-3.40); #Monocytes 1.3 thou/uL (0.11-0.59); #Neutrophils 6.4 thou/uL (1.40-6.50); %Basophils 0.1 % (0.0-1.0); %Eosinophils 1.4 % (0.0-10.0); %Lymphocytes 11.9 % (21.0-51.0); %Monocytes 14.9 % (0.0-10.0); %Neutrophils 71.7 % (42.0-75.0); Hemoglobin 10.7 g/dL (14.0-18.0); Mean Corpuscular HGB CONC 32.5 g/dL (32.0-36.0); Mean Corpuscular Hemoglobin 31.9 pg (27.0-31.0); Mean Corpuscular Volume 98.1 fL (78.0-98.0); Mean Platelet Volume 12.2 fL (7.4-10.4); Platelet Count 116 thou/uL (130-400); RBC Distribution Width 14.8 % (11.5-14.5); Red Blood Cell (RBC) Count 3.35 mill/uL (4.70-6.10); White Blood Cell (WBC) Count 8.9 thou/uL (4.8-10.8)
[2021-06-07 04:57] LABS: Anion Gap 15 mmol/L (10-20); BUN (Urea Nitrogen) 16 mg/dL (8.4-25.7); Calc. Creatinine Clearance 115 mL/min (70-130); Calcium 7.6 mg/dL (7.8-10.44); Carbon Dioxide 25 mmol/L (23-31); Chloride 100 mmol/L (98-107); Glucose 183 mg/dL (83-110); Potassium 4.5 mmol/L (3.5-5.1); Sodium 135 mmol/L (136-145)
[2021-06-07 05:07] LABS: Magnesium 1.7 mg/dL (1.6-2.6)
[2021-06-07] MEDS: Levothyroxine Sodium 75 MCG TAB PO SCH (06:10)
[2021-06-07] MEDS: HumaLOG 300 UNITS/3 ML VIAL SC PRN ×4 (06:36→21:24)
[2021-06-07] MEDS ORDERED: Furosemide 20 MG TAB PO SCH (09:00)
[2021-06-07] MEDS ORDERED: FLU VACC QS2021-22(65YR UP)/PF 240 MCG/0.7 ML SYRINGE IM ONE (09:00)
[2021-06-07] MEDS: Divalproex Sodium 250 MG (DR) TAB PO SCH ×2 (09:54→21:21)
[2021-06-07] MEDS: Aspirin 81 mg Enteric Coated Tablet PO SCH (09:54)
[2021-06-07] MEDS: Apixaban 5 MG TAB PO SCH ×2 (09:55→21:20)
[2021-06-07] MEDS: Diltiazem 125 MG in Sodium Chloride 0.9% 100 ML IVPB SCH (11:20)
[2021-06-07] MEDS ORDERED: Digoxin 0.5 MG/2 ML AMP SLOW IVP SCH (14:30)
[2021-06-07] MEDS ORDERED: Amiodarone 450 MG in Dextrose 5% in Water 250 ML IVPB SCH (14:45)
[2021-06-07] MEDS ORDERED: Amiodarone 200 MG TAB PO SCH (21:00)
[2021-06-07] MEDS: traZODone HCl 50 MG TAB PO SCH (21:20)
[2021-06-07] MEDS: OLANZapine 5 MG TAB PO SCH (21:21)
[2021-06-07 22:51] LABS: Vancomycin, Trough 16.8 ug/mL
[2021-06-08] MEDS: Vancomycin 1.5 GRAM/300 ML BAG 1.5 GM in Premix Bag 1 BAG IVPB SCH ×3 (00:03→23:40)
[2021-06-08] MEDS: Diltiazem 125 MG in Sodium Chloride 0.9% 100 ML IVPB SCH ×2 (00:10→16:04)
[2021-06-08] MEDS: Amiodarone 450 MG in Dextrose 5% in Water 250 ML IVPB SCH ×2 (01:28→16:04)
[2021-06-08] MEDS: Cefepime 2 GM in Sodium Chloride 0.9% 100 ML IVPB SCH ×3 (04:29→18:28)
[2021-06-08 05:06] LABS: Hemoglobin 10.2 g/dL (14.0-18.0); Mean Corpuscular HGB CONC 32.9 g/dL (32.0-36.0); Mean Corpuscular Hemoglobin 32.1 pg (27.0-31.0); Mean Corpuscular Volume 97.6 fL (78.0-98.0); Mean Platelet Volume 11.1 fL (7.4-10.4); Platelet Count 139 thou/uL (130-400); RBC Distribution Width 14.6 % (11.5-14.5); Red Blood Cell (RBC) Count 3.17 mill/uL (4.70-6.10); White Blood Cell (WBC) Count 5.9 thou/uL (4.8-10.8)
[2021-06-08 05:15] LABS: Anion Gap 13 mmol/L (10-20); BUN (Urea Nitrogen) 19 mg/dL (8.4-25.7); Calc. Creatinine Clearance 97 mL/min (70-130); Calcium 7.6 mg/dL (7.8-10.44); Carbon Dioxide 25 mmol/L (23-31); Chloride 100 mmol/L (98-107); Glucose 306 mg/dL (83-110); Potassium 3.6 mmol/L (3.5-5.1); Sodium 134 mmol/L (136-145)
[2021-06-08 05:39] LABS: Band 13 % (5-11); Eosinophils 5 % (0-10); Large Platelets SLIGHT; Lymphocytes 9 % (21-51); MDiff Complete? YES; Monocytes 13 % (0-10); Myelocyte 2 % (0-0); Neutrophil 56 % (42-75); Platelet Morphology Comment Appears Adequate
[2021-06-08] MEDS: Furosemide 20 MG/2 ML VIAL SLOW IVP SCH ×2 (06:02→15:00)
[2021-06-08] MEDS: Levothyroxine Sodium 75 MCG TAB PO SCH (06:02)
[2021-06-08] MEDS: HumaLOG 300 UNITS/3 ML VIAL SC PRN ×4 (06:02→21:59)
[2021-06-08] MEDS: Divalproex Sodium 250 MG (DR) TAB PO SCH ×2 (08:48→21:28)
[2021-06-08] MEDS: Apixaban 5 MG TAB PO SCH ×2 (08:48→21:30)
[2021-06-08] MEDS: Aspirin 81 mg Enteric Coated Tablet PO SCH (08:48)
[2021-06-08] MEDS ORDERED: Senokot S 8.6-50 MG TAB PO SCH (11:00)
[2021-06-08] MEDS ORDERED: Digoxin 0.5 MG/2 ML AMP SLOW IVP SCH ×2 (15:15→21:00)
[2021-06-08] MEDS: Senokot S 8.6-50 MG TAB PO SCH (21:24)
[2021-06-08] MEDS: OLANZapine 5 MG TAB PO SCH (21:29)
[2021-06-08] MEDS: traZODone HCl 50 MG TAB PO SCH (21:30)
[2021-06-08] MEDS: Acetaminophen 325 MG TAB PO PRN (21:30)
[2021-06-09] MEDS: Cefepime 2 GM in Sodium Chloride 0.9% 100 ML IVPB SCH ×3 (03:53→19:02)
[2021-06-09] MEDS: Diltiazem 125 MG in Sodium Chloride 0.9% 100 ML IVPB SCH (03:53)
[2021-06-09] MEDS: Furosemide 20 MG/2 ML VIAL SLOW IVP SCH ×2 (05:23→14:30)
[2021-06-09] MEDS: Levothyroxine Sodium 75 MCG TAB PO SCH (05:23)
[2021-06-09 05:35] LABS: Anion Gap 12 mmol/L (10-20); BUN (Urea Nitrogen) 21 mg/dL (8.4-25.7); Calc. Creatinine Clearance 109 mL/min (70-130); Calcium 7.8 mg/dL (7.8-10.44); Carbon Dioxide 26 mmol/L (23-31); Chloride 101 mmol/L (98-107); Glucose 225 mg/dL (83-110); Potassium 3.3 mmol/L (3.5-5.1); Sodium 136 mmol/L (136-145)
[2021-06-09 05:43] LABS: Hemoglobin 10.2 g/dL (14.0-18.0); Mean Corpuscular HGB CONC 33.6 g/dL (32.0-36.0); Mean Corpuscular Hemoglobin 32.5 pg (27.0-31.0); Mean Corpuscular Volume 96.7 fL (78.0-98.0); Platelet Count 154 thou/uL (130-400); RBC Distribution Width 14.4 % (11.5-14.5); Red Blood Cell (RBC) Count 3.13 mill/uL (4.70-6.10); White Blood Cell (WBC) Count 5.5 thou/uL (4.8-10.8)
[2021-06-09 05:47] LABS: Digoxin 0.89 ng/mL (0.8-2.0)
[2021-06-09 06:24] LABS: Band 15 % (5-11); Eosinophils 1 % (0-10); Lymphocytes 18 % (21-51); MDiff Complete? YES; Monocytes 16 % (0-10); Neutrophil 49 % (42-75)
[2021-06-09] MEDS: HumaLOG 300 UNITS/3 ML VIAL SC PRN ×4 (06:34→22:17)
[2021-06-09] MEDS: Amiodarone 450 MG in Dextrose 5% in Water 250 ML IVPB SCH ×2 (07:20→23:23)
[2021-06-09] MEDS: Aspirin 81 mg Enteric Coated Tablet PO SCH (09:32)
[2021-06-09] MEDS: Senokot S 8.6-50 MG TAB PO SCH ×2 (09:33→20:18)
[2021-06-09] MEDS: Apixaban 5 MG TAB PO SCH ×2 (09:33→20:18)
[2021-06-09] MEDS: Digoxin 0.125 MG TAB PO SCH (09:33)
[2021-06-09] MEDS: Divalproex Sodium 250 MG (DR) TAB PO SCH ×2 (09:34→20:17)
[2021-06-09 11:24] LABS: Vancomycin, Trough 26.7 ug/mL
[2021-06-09] MEDS ORDERED: Potassium Chloride 20 MEQ TAB PO SCH (13:15)
[2021-06-09] MEDS: traZODone HCl 50 MG TAB PO SCH (20:18)
[2021-06-09] MEDS: OLANZapine 5 MG TAB PO SCH (20:18)
[2021-06-09] MEDS: Lantus 1000 UNITS/10 ML VIAL SC SCH (22:18)
[2021-06-09] MEDS: Acetaminophen 325 MG TAB PO PRN (22:21)
[2021-06-09] MEDS ORDERED: Vancomycin 1 GM in Premix Bag 1 BAG IVPB SCH (23:59)
[2021-06-10] MEDS: Cefepime 2 GM in Sodium Chloride 0.9% 100 ML IVPB SCH (04:06)
[2021-06-10 05:12] LABS: Hemoglobin 10.3 g/dL (14.0-18.0); Mean Corpuscular HGB CONC 33.3 g/dL (32.0-36.0); Mean Corpuscular Volume 96.4 fL (78.0-98.0); Mean Platelet Volume 10.6 fL (7.4-10.4); Platelet Count 165 thou/uL (130-400); RBC Distribution Width 14.2 % (11.5-14.5); Red Blood Cell (RBC) Count 3.22 mill/uL (4.70-6.10); White Blood Cell (WBC) Count 5.6 thou/uL (4.8-10.8)
[2021-06-10 05:26] LABS: Anion Gap 9 mmol/L (10-20); BUN (Urea Nitrogen) 17 mg/dL (8.4-25.7); Calc. Creatinine Clearance 112 mL/min (70-130); Calcium 8.1 mg/dL (7.8-10.44); Carbon Dioxide 29 mmol/L (23-31); Chloride 102 mmol/L (98-107); Glucose 204 mg/dL (83-110); Potassium 3.5 mmol/L (3.5-5.1); Sodium 136 mmol/L (136-145)
[2021-06-10 05:39] LABS: Band 12 % (5-11); Lymphocytes 14 % (21-51); MDiff Complete? YES; Monocytes 21 % (0-10); Neutrophil 51 % (42-75)
[2021-06-10] MEDS: Furosemide 20 MG/2 ML VIAL SLOW IVP SCH ×2 (06:06→14:19)
[2021-06-10] MEDS: HumaLOG 300 UNITS/3 ML VIAL SC PRN ×3 (06:07→16:47)
[2021-06-10] MEDS: Levothyroxine Sodium 75 MCG TAB PO SCH (06:07)
[2021-06-10] MEDS: Divalproex Sodium 250 MG (DR) TAB PO SCH ×2 (09:06→20:46)
[2021-06-10] MEDS: Apixaban 5 MG TAB PO SCH ×2 (09:07→20:46)
[2021-06-10] MEDS: Aspirin 81 mg Enteric Coated Tablet PO SCH (09:07)
[2021-06-10] MEDS: Senokot S 8.6-50 MG TAB PO SCH ×2 (09:07→20:46)
[2021-06-10] MEDS: Digoxin 0.125 MG TAB PO SCH (09:07)
[2021-06-10] MEDS: Lantus 1000 UNITS/10 ML VIAL SC SCH ×2 (09:08→20:45)
[2021-06-10] MEDS: Amiodarone 450 MG in Dextrose 5% in Water 250 ML IVPB SCH (14:16)
[2021-06-10] MEDS: Diltiazem 125 MG in Sodium Chloride 0.9% 100 ML IVPB SCH (20:44)
[2021-06-10] MEDS: traZODone HCl 50 MG TAB PO SCH (20:46)
[2021-06-10] MEDS: Cefdinir 300 MG CAP PO SCH (20:46)
[2021-06-10] MEDS: OLANZapine 5 MG TAB PO SCH (20:47)
[2021-06-11 04:57] LABS: Hemoglobin 10.5 g/dL (14.0-18.0); Mean Corpuscular HGB CONC 32.6 g/dL (32.0-36.0); Mean Corpuscular Hemoglobin 31.3 pg (27.0-31.0); Mean Corpuscular Volume 96.1 fL (78.0-98.0); Mean Platelet Volume 10.5 fL (7.4-10.4); Platelet Count 169 thou/uL (130-400); RBC Distribution Width 14.4 % (11.5-14.5); Red Blood Cell (RBC) Count 3.34 mill/uL (4.70-6.10); White Blood Cell (WBC) Count 6.8 thou/uL (4.8-10.8)
[2021-06-11 05:14] LABS: Chloride 100 mmol/L (98-107); Potassium 3.4 mmol/L (3.5-5.1); Sodium 137 mmol/L (136-145)
[2021-06-11 05:23] LABS: BUN (Urea Nitrogen) 15 mg/dL (8.4-25.7); Calc. Creatinine Clearance 116 mL/min (70-130); Carbon Dioxide 28 mmol/L (23-31); Glucose 231 mg/dL (83-110)
[2021-06-11 05:24] LABS: Anion Gap 12 mmol/L (10-20)
[2021-06-11 05:53] LABS: Band 17 % (5-11); Eosinophils 5 % (0-10); Lymphocytes 16 % (21-51); MDiff Complete? YES; Monocytes 12 % (0-10); Neutrophil 50 % (42-75)
[2021-06-11] MEDS: Furosemide 20 MG/2 ML VIAL SLOW IVP SCH ×2 (06:29→14:31)
[2021-06-11] MEDS: Levothyroxine Sodium 75 MCG TAB PO SCH (06:29)
[2021-06-11] MEDS: Senokot S 8.6-50 MG TAB PO SCH ×2 (09:07→20:48)
[2021-06-11] MEDS: Cefdinir 300 MG CAP PO SCH ×2 (09:07→20:48)
[2021-06-11] MEDS: Aspirin 81 mg Enteric Coated Tablet PO SCH (09:07)
[2021-06-11] MEDS: Apixaban 5 MG TAB PO SCH ×2 (09:10→20:49)
[2021-06-11] MEDS: Divalproex Sodium 250 MG (DR) TAB PO SCH ×2 (09:10→20:49)
[2021-06-11] MEDS: Digoxin 0.125 MG TAB PO SCH (09:10)
[2021-06-11] MEDS ORDERED: Potassium Chloride 20 MEQ TAB PO SCH (09:45)
[2021-06-11] MEDS: Lantus 1000 UNITS/10 ML VIAL SC SCH ×2 (10:18→20:50)
[2021-06-11] MEDS: Diltiazem 125 MG in Sodium Chloride 0.9% 100 ML IVPB SCH (11:24)
[2021-06-11] MEDS: HumaLOG 300 UNITS/3 ML VIAL SC PRN ×2 (12:10→17:29)
[2021-06-11] MEDS: Potassium Chloride 10 MEQ TAB PO SCH (16:27)
[2021-06-11] MEDS: OLANZapine 5 MG TAB PO SCH (20:48)
[2021-06-11] MEDS: traZODone HCl 50 MG TAB PO SCH (20:49)
[2021-06-12] MEDS: Furosemide 20 MG/2 ML VIAL SLOW IVP SCH ×2 (05:32→14:18)
[2021-06-12] MEDS: Levothyroxine Sodium 75 MCG TAB PO SCH (05:32)
[2021-06-12] MEDS ORDERED: Amiodarone 200 MG TAB PO SCH ×2 (09:30→21:00)
[2021-06-12] MEDS ORDERED: PROPOFOL 200 MG/20 ML VIAL ONE (11:16)
[2021-06-12] MEDS ORDERED: Lidocaine 1% PF 5 ML VIAL ONE (11:16)
[2021-06-12] MEDS: Potassium Chloride 10 MEQ TAB PO SCH ×2 (13:32→16:55)
[2021-06-12] MEDS: Digoxin 0.125 MG TAB PO SCH (13:34)
[2021-06-12] MEDS: Cefdinir 300 MG CAP PO SCH (13:53)
[2021-06-12] MEDS: Aspirin 81 mg Enteric Coated Tablet PO SCH (13:53)
[2021-06-12] MEDS: Divalproex Sodium 250 MG (DR) TAB PO SCH (13:54)
[2021-06-12] MEDS: Senokot S 8.6-50 MG TAB PO SCH (13:59)
[2021-06-12] MEDS: Apixaban 5 MG TAB PO SCH (13:59)
[2021-06-12] MEDS: Lantus 1000 UNITS/10 ML VIAL SC SCH (14:10)
[2021-06-12 16:14] VITALS: BP 122/66; TEMP 97.8
[2021-06-12] MEDS: HumaLOG 300 UNITS/3 ML VIAL SC PRN (16:56)
[2021-06-13] MEDS ORDERED: Amiodarone 200 MG TAB PO SCH (09:00)
== END 2021-06-12 17:25 | disposition home or self-care (01) | DRG 193 ==
LOC: ERS 09:11 → 2NO 13:51
PROVIDERS: ADMIT Family Medicine; ATTEND Internal Medicine
PROC: 5A2204Z Restoration of Cardiac Rhythm, Single (ICD-10-PCS; principal; 2021-06-12)
DX: J15.9 Unspecified bacterial pneumonia (principal); J96.01 Acute respiratory failure with hypoxia; G93.41 Metabolic encephalopathy; I50.33 Acute on chronic diastolic (congestive) heart failure; I48.19 Other persistent atrial fibrillation; Z20.822 Contact with and (suspected) exposure to COVID-19; E11.9 Type 2 diabetes mellitus without complications; E78.5 Hyperlipidemia, unspecified; G47.33 Obstructive sleep apnea (adult) (pediatric); F41.9 Anxiety disorder, unspecified; F39 Unspecified mood [affective] disorder; D64.9 Anemia, unspecified; E03.9 Hypothyroidism, unspecified; G47.00 Insomnia, unspecified; I11.0 Hypertensive heart disease with heart failure; Z79.84 Long term (current) use of oral hypoglycemic drugs; Z90.09 Acquired absence of other part of head and neck; Z99.89 Dependence on other enabling machines and devices; Z79.890 Hormone replacement therapy; Z79.01 Long term (current) use of anticoagulants; Z79.899 Other long term (current) drug therapy; Z86.16 Personal history of COVID-19; Z91.14 Patient's other noncompliance with medication regimen
CPT/HCPCS: 36415; 36416; 71045; 80048; 80053; 80162; 80202; 83605; 83735; 83880; 84145; 84484; 85025; 87040; 87070; 87149; 87205; 87449; 87804; 87899; 92960; 93005; 93010; 93306; 94640; 96365; 96366; 96367; 96375; J0282; J0692; J1160; J1815; J1940; J1956; J2270; J2704; J3370; J3490; J7070; J7620; U0003; U0005

== ENCOUNTER 2021-06-17 15:37 | Inpatient (IN) | payer MEDICARE ==
[2021-06-17] MEDS ORDERED: Furosemide 40 MG/4 ML VIAL ONE (16:21)
[2021-06-17] MEDS ORDERED: Nitroglycerin 2% Ointment 1 INCH/1 GM Packet ONE (16:21)
[2021-06-17 16:40] LABS: Hemoglobin 11.3 g/dL (14.0-18.0); Mean Corpuscular HGB CONC 32.6 g/dL (32.0-36.0); Mean Corpuscular Hemoglobin 32.2 pg (27.0-31.0); Mean Corpuscular Volume 98.6 fL (78.0-98.0); Mean Platelet Volume 10.9 fL (7.4-10.4); Platelet Count 307 thou/uL (130-400); RBC Distribution Width 14.4 % (11.5-14.5); White Blood Cell (WBC) Count 14.5 thou/uL (4.8-10.8)
[2021-06-17 17:03] LABS: ALT (SGPT) 21 U/L (8-55); AST (SGOT) 18 U/L (5-34); Albumin 3.2 g/dL (3.4-4.8); Alkaline Phosphatase 83 U/L (40-110); Anion Gap 19 mmol/L (10-20); BUN (Urea Nitrogen) 24 mg/dL (8.4-25.7); Bilirubin, Total 0.4 mg/dL (0.2-1.2); CK (CPK) 20 U/L (30-200); Calc. Creatinine Clearance 0 mL/min (70-130); Calcium 8.7 mg/dL (7.8-10.44); Carbon Dioxide 20 mmol/L (23-31); Chloride 96 mmol/L (98-107); Globulin 3.5 g/dL (2.4-3.5); Glucose 266 mg/dL (83-110); Magnesium 1.8 mg/dL (1.6-2.6); Potassium 5.4 mmol/L (3.5-5.1); Protein, Total 6.7 g/dL (5.8-8.1); Sodium 130 mmol/L (136-145)
[2021-06-17 17:16] LABS: Band 1 % (5-11); Lymphocytes 12 % (21-51); MDiff Complete? YES; Metamyelocyte 1 % (0-0); Monocytes 12 % (0-10); Neutrophil 74 % (42-75); Platelet Morphology Comment Appears Adequate; RBC Morphology Normal
[2021-06-17] MEDS ORDERED: Acetaminophen 325 MG TAB PO PRN (20:00)
[2021-06-17] MEDS ORDERED: HYDROcodone/Acetaminophen 5/325 mg Tablet PO PRN (20:00)
[2021-06-17] MEDS ORDERED: Ondansetron PF 4 MG/2 ML Vial IVP PRN (20:00)
[2021-06-17] MEDS ORDERED: HYDROcodone/Acetaminophen 7.5/325 mg Tablet PO PRN (20:00)
[2021-06-17 20:07] LABS: Troponin I Less than 0.010 ng/mL (< 0.028)
[2021-06-17] MEDS ORDERED: Labetalol HCl 100 MG/20 ML VIAL SLOW IVP PRN (20:13)
[2021-06-17] MEDS ORDERED: Dextrose 5% in Water 1,000 ML IV PRN (20:52)
[2021-06-17] MEDS ORDERED: HumaLOG 300 UNITS/3 ML VIAL SC PRN (20:52)
[2021-06-17] MEDS ORDERED: Dextrose 50% Abboject 50 ML SYRINGE SLOW IVP PRN (20:52)
[2021-06-17 21:34] LABS: Anion Gap 13 mmol/L (10-20); BUN (Urea Nitrogen) 23 mg/dL (8.4-25.7); Calc. Creatinine Clearance 0 mL/min (70-130); Calcium 8.7 mg/dL (7.8-10.44); Carbon Dioxide 27 mmol/L (23-31); Chloride 96 mmol/L (98-107); Glucose 257 mg/dL (83-110); Potassium 4.8 mmol/L (3.5-5.1); Sodium 131 mmol/L (136-145)
[2021-06-17] MEDS ORDERED: Metolazone 5 MG TAB PO SCH (22:00)
[2021-06-17] MEDS: Famotidine/PF 20 mg/2ml Vial SLOW IVP SCH (22:08)
[2021-06-17] MEDS: Sodium Bicarbonate Tab 325 MG TAB PO SCH (22:10)
[2021-06-17] MEDS: Divalproex Sodium 125 mg Sprinkle Capsule PO SCH (22:10)
[2021-06-17 22:55] LABS: Troponin I Less than 0.010 ng/mL (< 0.028)
[2021-06-17] MEDS ORDERED: Furosemide 40 MG/4 ML VIAL SLOW IVP SCH (23:00)
[2021-06-18] MEDS: Levothyroxine Sodium 75 MCG TAB PO SCH (04:54)
[2021-06-18] MEDS ORDERED: Furosemide 40 MG/4 ML VIAL SLOW IVP SCH (06:00)
[2021-06-18] MEDS: HumaLOG 300 UNITS/3 ML VIAL SC PRN ×3 (06:09→17:33)
[2021-06-18 06:22] LABS: Hemoglobin 11.6 g/dL (14.0-18.0); Mean Corpuscular HGB CONC 32.6 g/dL (32.0-36.0); Mean Corpuscular Hemoglobin 32.1 pg (27.0-31.0); Mean Corpuscular Volume 98.3 fL (78.0-98.0); Mean Platelet Volume 10.8 fL (7.4-10.4); Platelet Count 268 thou/uL (130-400); RBC Distribution Width 14.5 % (11.5-14.5); Red Blood Cell (RBC) Count 3.63 mill/uL (4.70-6.10); White Blood Cell (WBC) Count 11.6 thou/uL (4.8-10.8)
[2021-06-18 06:47] LABS: ALT (SGPT) 18 U/L (8-55); AST (SGOT) 14 U/L (5-34); Albumin 3.1 g/dL (3.4-4.8); Alkaline Phosphatase 71 U/L (40-110); Anion Gap 15 mmol/L (10-20); BUN (Urea Nitrogen) 22 mg/dL (8.4-25.7); Bilirubin, Total 0.5 mg/dL (0.2-1.2); Calc. Creatinine Clearance 97 mL/min (70-130); Calcium 8.7 mg/dL (7.8-10.44); Carbon Dioxide 27 mmol/L (23-31); Chloride 94 mmol/L (98-107); Globulin 3.4 g/dL (2.4-3.5); Glucose 231 mg/dL (83-110); Potassium 4.7 mmol/L (3.5-5.1); Protein, Total 6.5 g/dL (5.8-8.1); Sodium 131 mmol/L (136-145)
[2021-06-18 08:26] LABS: Band 6 % (5-11); Lymphocytes 9 % (21-51); MDiff Complete? YES; Monocytes 22 % (0-10); Myelocyte 2 % (0-0); Neutrophil 60 % (42-75); Platelet Morphology Comment Appears Adequate; Polychromasia SLIGHT = 2-3 cells (100X) (0-2/hpf)
[2021-06-18] MEDS: Famotidine/PF 20 mg/2ml Vial SLOW IVP SCH ×2 (09:04→20:23)
[2021-06-18] MEDS: Apixaban 5 MG TAB PO SCH ×2 (09:05→20:22)
[2021-06-18] MEDS: Aspirin 81 mg Enteric Coated Tablet PO SCH (09:05)
[2021-06-18] MEDS: Sodium Bicarbonate Tab 325 MG TAB PO SCH ×2 (09:07→20:22)
[2021-06-18] MEDS: Donepezil HCl 5 MG TAB PO SCH (09:07)
[2021-06-18] MEDS: Amiodarone 200 MG TAB PO SCH ×2 (09:07→20:23)
[2021-06-18] MEDS: Metolazone 5 MG TAB PO SCH (09:10)
[2021-06-18] MEDS: Cefepime 2 GM in Sodium Chloride 0.9% 100 ML IVPB SCH ×2 (09:10→20:23)
[2021-06-18] MEDS: Divalproex Sodium 125 mg Sprinkle Capsule PO SCH ×2 (09:11→20:22)
[2021-06-18 11:33] LABS: SARS-CoV-2 PCR by NAA Not Detected (NotDetected)
[2021-06-18] MEDS: Furosemide 40 MG/4 ML VIAL SLOW IVP SCH ×2 (14:12→20:22)
[2021-06-18] MEDS: traZODone HCl 50 MG TAB PO SCH (20:22)
[2021-06-18] MEDS: OLANZapine 5 MG TAB PO SCH (20:23)
[2021-06-19 05:35] LABS: Anion Gap 15 mmol/L (10-20); BUN (Urea Nitrogen) 26 mg/dL (8.4-25.7); BUN/Creatinine Ratio 23.01; Calc. Creatinine Clearance 85 mL/min (70-130); Calcium 8.9 mg/dL (7.8-10.44); Carbon Dioxide 30 mmol/L (23-31); Chloride 92 mmol/L (98-107); Glucose 195 mg/dL (83-110); Phosphorus 4.2 mg/dL (2.3-4.7); Potassium 3.8 mmol/L (3.5-5.1); Sodium 133 mmol/L (136-145)
[2021-06-19] MEDS: Furosemide 40 MG/4 ML VIAL SLOW IVP SCH (06:03)
[2021-06-19] MEDS: Levothyroxine Sodium 75 MCG TAB PO SCH (06:03)
[2021-06-19] MEDS: Famotidine/PF 20 mg/2ml Vial SLOW IVP SCH ×2 (09:18→20:26)
[2021-06-19] MEDS: Metolazone 5 MG TAB PO SCH (09:18)
[2021-06-19] MEDS: Sodium Bicarbonate Tab 325 MG TAB PO SCH (09:18)
[2021-06-19] MEDS: Aspirin 81 mg Enteric Coated Tablet PO SCH (09:19)
[2021-06-19] MEDS: Amiodarone 200 MG TAB PO SCH ×2 (09:19→20:26)
[2021-06-19] MEDS: Apixaban 5 MG TAB PO SCH ×2 (09:19→20:27)
[2021-06-19] MEDS: Donepezil HCl 5 MG TAB PO SCH (09:19)
[2021-06-19] MEDS: OLANZapine 5 MG TAB PO SCH ×2 (09:19→20:26)
[2021-06-19] MEDS: Divalproex Sodium 125 mg Sprinkle Capsule PO SCH ×2 (09:20→20:27)
[2021-06-19] MEDS: Cefepime 2 GM in Sodium Chloride 0.9% 100 ML IVPB SCH ×2 (10:00→20:26)
[2021-06-19] MEDS ORDERED: Spironolactone 25 MG TAB PO SCH (10:45)
[2021-06-19] MEDS: HumaLOG 300 UNITS/3 ML VIAL SC PRN ×2 (12:09→17:04)
[2021-06-19] MEDS ORDERED: Digoxin 0.5 MG/2 ML AMP SLOW IVP SCH (15:00)
[2021-06-19] MEDS: Furosemide 20 MG/2 ML VIAL SLOW IVP SCH ×2 (15:00→20:26)
[2021-06-19] MEDS: traZODone HCl 50 MG TAB PO SCH (20:27)
[2021-06-20] MEDS: Levothyroxine Sodium 75 MCG TAB PO SCH (05:30)
[2021-06-20] MEDS: Furosemide 20 MG/2 ML VIAL SLOW IVP SCH ×3 (05:30→21:17)
[2021-06-20] MEDS: HumaLOG 300 UNITS/3 ML VIAL SC PRN ×2 (05:30→11:21)
[2021-06-20 05:53] LABS: Band 2 % (5-11); Eosinophils 2 % (0-10); Hemoglobin 10.6 g/dL (14.0-18.0); Hypochromia SLIGHT = 6-15 cells (100X) (0-5/hpf); Lymphocytes 12 % (21-51); MDiff Complete? YES; Mean Corpuscular HGB CONC 32.2 g/dL (32.0-36.0); Mean Corpuscular Volume 99.3 fL (78.0-98.0); Mean Platelet Volume 10.6 fL (7.4-10.4); Monocytes 16 % (0-10); Neutrophil 68 % (42-75); Platelet Count 259 thou/uL (130-400); Platelet Morphology Comment Appears Adequate; Red Blood Cell (RBC) Count 3.31 mill/uL (4.70-6.10); White Blood Cell (WBC) Count 10.4 thou/uL (4.8-10.8)
[2021-06-20 05:54] LABS: Albumin 2.8 g/dL (3.4-4.8); BUN (Urea Nitrogen) 26 mg/dL (8.4-25.7); BUN/Creatinine Ratio 22.61; Calc. Creatinine Clearance 83 mL/min (70-130); Calcium 8.8 mg/dL (7.8-10.44); Glucose 185 mg/dL (83-110); Phosphorus 3.6 mg/dL (2.3-4.7)
[2021-06-20 06:03] LABS: Anion Gap 16 mmol/L (10-20); Carbon Dioxide 35 mmol/L (23-31); Chloride 89 mmol/L (98-107); Potassium 3.5 mmol/L (3.5-5.1); Sodium 136 mmol/L (136-145)
[2021-06-20] MEDS ORDERED: Spironolactone 25 MG TAB PO SCH ×2 (08:00→10:30)
[2021-06-20] MEDS: Famotidine/PF 20 mg/2ml Vial SLOW IVP SCH ×2 (08:31→21:17)
[2021-06-20] MEDS: Cefepime 2 GM in Sodium Chloride 0.9% 100 ML IVPB SCH ×2 (08:31→21:22)
[2021-06-20] MEDS: Aspirin 81 mg Enteric Coated Tablet PO SCH (08:32)
[2021-06-20] MEDS: Digoxin 0.125 MG TAB PO SCH (08:32)
[2021-06-20] MEDS: OLANZapine 5 MG TAB PO SCH ×2 (08:33→21:16)
[2021-06-20] MEDS: Metolazone 5 MG TAB PO SCH (08:34)
[2021-06-20] MEDS: AcetaZOLAMIDE 250 MG TAB PO SCH ×2 (08:34→21:16)
[2021-06-20] MEDS: glipiZIDE 5 MG TAB PO SCH (08:34)
[2021-06-20] MEDS: Amiodarone 200 MG TAB PO SCH ×2 (08:34→21:16)
[2021-06-20] MEDS: Apixaban 5 MG TAB PO SCH ×2 (08:34→21:16)
[2021-06-20] MEDS: metFORMIN 500 MG TAB PO SCH ×2 (08:35→18:00)
[2021-06-20] MEDS: Donepezil HCl 5 MG TAB PO SCH (08:35)
[2021-06-20] MEDS: Divalproex Sodium 125 mg Sprinkle Capsule PO SCH ×2 (09:00→21:16)
[2021-06-20] MEDS ORDERED: FLU VACC QS2021-22(65YR UP)/PF 240 MCG/0.7 ML SYRINGE IM ONE (09:00)
[2021-06-20] MEDS: traZODone HCl 50 MG TAB PO SCH (21:17)
[2021-06-21 04:38] LABS: #Eosinphils 0.2 thou/uL (0.0-0.7); #Lymphocytes 1.3 thou/uL (1.20-3.40); #Monocytes 1.6 thou/uL (0.11-0.59); %Basophils 0.4 % (0.0-1.0); %Eosinophils 2.1 % (0.0-10.0); %Lymphocytes 11.8 % (21.0-51.0); %Monocytes 14.5 % (0.0-10.0); %Neutrophils 71.3 % (42.0-75.0); Hemoglobin 11.2 g/dL (14.0-18.0); Mean Corpuscular HGB CONC 31.8 g/dL (32.0-36.0); Mean Corpuscular Volume 97.7 fL (78.0-98.0); Mean Platelet Volume 10.5 fL (7.4-10.4); Platelet Count 288 thou/uL (130-400); RBC Distribution Width 13.9 % (11.5-14.5); Red Blood Cell (RBC) Count 3.61 mill/uL (4.70-6.10); White Blood Cell (WBC) Count 11.2 thou/uL (4.8-10.8)
[2021-06-21 05:02] LABS: Albumin 2.8 g/dL (3.4-4.8); BUN (Urea Nitrogen) 21 mg/dL (8.4-25.7); BUN/Creatinine Ratio 21.88; Calc. Creatinine Clearance 0 mL/min (70-130); Glucose 174 mg/dL (83-110); Phosphorus 3.2 mg/dL (2.3-4.7)
[2021-06-21 05:03] LABS: Digoxin 0.91 ng/mL (0.8-2.0)
[2021-06-21 05:11] LABS: Anion Gap 10 mmol/L (10-20); Carbon Dioxide 39 mmol/L (23-31); Chloride 87 mmol/L (98-107); Potassium 3.4 mmol/L (3.5-5.1); Sodium 133 mmol/L (136-145)
[2021-06-21] MEDS: Furosemide 20 MG/2 ML VIAL SLOW IVP SCH (06:03)
[2021-06-21] MEDS: Levothyroxine Sodium 75 MCG TAB PO SCH (06:03)
[2021-06-21] MEDS: HumaLOG 300 UNITS/3 ML VIAL SC PRN ×2 (06:04→12:05)
[2021-06-21] MEDS ORDERED: Potassium Chloride 20 MEQ TAB PO SCH (07:45)
[2021-06-21] MEDS ORDERED: Spironolactone 100 MG TAB PO SCH (08:00)
[2021-06-21] MEDS: metFORMIN 500 MG TAB PO SCH ×2 (08:41→17:14)
[2021-06-21] MEDS: Donepezil HCl 5 MG TAB PO SCH (08:42)
[2021-06-21] MEDS: OLANZapine 5 MG TAB PO SCH (08:42)
[2021-06-21] MEDS: Apixaban 5 MG TAB PO SCH (08:42)
[2021-06-21] MEDS: Aspirin 81 mg Enteric Coated Tablet PO SCH (08:42)
[2021-06-21] MEDS: glipiZIDE 5 MG TAB PO SCH (08:43)
[2021-06-21] MEDS: Divalproex Sodium 125 mg Sprinkle Capsule PO SCH (08:43)
[2021-06-21] MEDS: Amiodarone 200 MG TAB PO SCH (08:43)
[2021-06-21] MEDS: Famotidine/PF 20 mg/2ml Vial SLOW IVP SCH (08:44)
[2021-06-21] MEDS: Cefepime 2 GM in Sodium Chloride 0.9% 100 ML IVPB SCH (08:44)
[2021-06-21] MEDS: Digoxin 0.125 MG TAB PO SCH (08:46)
[2021-06-21 15:53] VITALS: BP 120/61; TEMP 98.3
[2021-06-22] MEDS ORDERED: Amiodarone 200 MG TAB PO SCH (09:00)
== END 2021-06-21 17:30 | disposition home health service (06) | DRG 291 ==
LOC: ERS 15:37 → 2NO 19:05
PROVIDERS: ADMIT Internal Medicine; ATTEND Internal Medicine
DX: I13.0 Hypertensive heart and chronic kidney disease with heart failure and stage 1 through stage 4 chronic kidney disease, or unspecified chronic kidney disease (principal); I50.33 Acute on chronic diastolic (congestive) heart failure; J96.01 Acute respiratory failure with hypoxia; J18.9 Pneumonia, unspecified organism; E87.1 Hypo-osmolality and hyponatremia; E87.3 Alkalosis; E78.5 Hyperlipidemia, unspecified; K21.9 Gastro-esophageal reflux disease without esophagitis; F41.9 Anxiety disorder, unspecified; G47.33 Obstructive sleep apnea (adult) (pediatric); E87.5 Hyperkalemia; E11.65 Type 2 diabetes mellitus with hyperglycemia; N18.9 Chronic kidney disease, unspecified; I34.0 Nonrheumatic mitral (valve) insufficiency; I48.0 Paroxysmal atrial fibrillation; E11.22 Type 2 diabetes mellitus with diabetic chronic kidney disease; E03.9 Hypothyroidism, unspecified; E78.00 Pure hypercholesterolemia, unspecified; E88.09 Other disorders of plasma-protein metabolism, not elsewhere classified; Z20.822 Contact with and (suspected) exposure to COVID-19; Z90.49 Acquired absence of other specified parts of digestive tract; Z79.82 Long term (current) use of aspirin; Z79.899 Other long term (current) drug therapy
CPT/HCPCS: 36415; 36416; 71045; 71046; 80053; 80069; 80162; 82550; 83735; 83880; 83930; 83935; 84300; 84484; 85025; 93005; 94640; J0692; J1160; J1815; J1940; J3490; J7620; S0028; U0003; U0005

== ENCOUNTER 2021-07-13 09:13 | Outpatient (CLI) | payer MEDICARE ==
[2021-07-13 11:31] LABS: PTT 30.8 sec (22.0-33.0); Prothrombin Time 11.4 sec (9.5-12.1)
[2021-07-13 11:33] LABS: Anion Gap 15 mmol/L (10-20); BUN (Urea Nitrogen) 26 mg/dL (8.4-25.7); Calc. Creatinine Clearance 0 mL/min (70-130); Carbon Dioxide 31 mmol/L (23-31); Chloride 90 mmol/L (98-107); Glucose 106 mg/dL (83-110); Potassium 4.7 mmol/L (3.5-5.1); Sodium 131 mmol/L (136-145)
[2021-07-13 11:35] LABS: Hemoglobin 12.4 g/dL (13.5-17.5); Mean Corpuscular HGB CONC 32.7 g/dL (32.0-36.0); Mean Corpuscular Hemoglobin 30.2 pg (27.0-33.0); Mean Corpuscular Volume 92.2 fl (81.2-95.1); Mean Platelet Volume 12.9 fl (7.4-10.4); Platelet Count 214 10x3/uL (150-450); RBC Distribution Width 14.6 % (11.5-14.5); Red Blood Cell (RBC) Count 4.11 10x6/uL (4.32-5.72); White Blood Cell (WBC) Count 9.6 10x3/uL (3.5-10.5)
[2021-07-13 21:43] LABS: SARS-CoV-2 PCR by NAA Not Detected (NotDetected)
== END 2021-07-13 09:14 | disposition home or self-care (01) ==
LOC: LABBT 09:13
PROVIDERS: ATTEND Internal Medicine Cardiovascular Disease
DX: Z01.812 Encounter for preprocedural laboratory examination (principal); I48.19 Other persistent atrial fibrillation; Z20.822 Contact with and (suspected) exposure to COVID-19
CPT/HCPCS: 80048; 85027; 85610; 85730; U0003; U0005

== ENCOUNTER 2021-07-18 07:09 | Day surgery (SDC) | payer MEDICARE ==
[2021-07-16 17:23] VITALS: BMI 27.2
[2021-07-18] MEDS ORDERED: ePHEDrine Sulfate 50 MG/10 ML VIAL ONE (08:14)
[2021-07-18] MEDS ORDERED: PROPOFOL 200 MG/20 ML VIAL ONE (08:34)
== END 2021-07-18 09:30 | disposition home or self-care (01) ==
LOC: CCL 07:09
PROVIDERS: ATTEND Internal Medicine Cardiovascular Disease
PROC: 5A2204Z Restoration of Cardiac Rhythm, Single (ICD-10-PCS; principal; 2021-07-18)
DX: I48.19 Other persistent atrial fibrillation (principal); I11.0 Hypertensive heart disease with heart failure; I50.32 Chronic diastolic (congestive) heart failure; I08.1 Rheumatic disorders of both mitral and tricuspid valves; E11.9 Type 2 diabetes mellitus without complications; E03.9 Hypothyroidism, unspecified; G47.33 Obstructive sleep apnea (adult) (pediatric); G40.909 Epilepsy, unspecified, not intractable, without status epilepticus; J96.90 Respiratory failure, unspecified, unspecified whether with hypoxia or hypercapnia; Z86.16 Personal history of COVID-19; Z79.01 Long term (current) use of anticoagulants; Z79.84 Long term (current) use of oral hypoglycemic drugs; Z79.899 Other long term (current) drug therapy
CPT/HCPCS: 36416; 92960; 93005; 93010; J2704

== ENCOUNTER 2021-08-02 16:16 | Emergency (ER) | payer MEDICARE ==
[2021-08-02 16:55] LABS: #Basophils 0.1 thou/uL (0.0-0.2); #Eosinphils 0.3 thou/uL (0.0-0.7); #Lymphocytes 1.6 thou/uL (1.20-3.40); #Neutrophils 3.9 thou/uL (1.40-6.50); %Basophils 0.8 % (0.0-1.0); %Eosinophils 4.9 % (0.0-10.0); %Lymphocytes 22.8 % (21.0-51.0); %Monocytes 14.2 % (0.0-10.0); %Neutrophils 57.4 % (42.0-75.0); Hemoglobin 12.2 g/dL (14.0-18.0); Mean Corpuscular HGB CONC 33.4 g/dL (32.0-36.0); Mean Corpuscular Volume 95.9 fL (78.0-98.0); Mean Platelet Volume 9.5 fL (7.4-10.4); Platelet Count 144 thou/uL (130-400); RBC Distribution Width 14.1 % (11.5-14.5); White Blood Cell (WBC) Count 6.8 thou/uL (4.8-10.8)
[2021-08-02 17:18] LABS: ALT (SGPT) 13 U/L (8-55); AST (SGOT) 13 U/L (5-34); Albumin 3.7 g/dL (3.4-4.8); Alkaline Phosphatase 71 U/L (40-110); Anion Gap 11 mmol/L (10-20); BUN (Urea Nitrogen) 25 mg/dL (8.4-25.7); Bilirubin, Total 0.3 mg/dL (0.2-1.2); Calc. Creatinine Clearance 0 mL/min (70-130); Calcium 9.1 mg/dL (7.8-10.44); Carbon Dioxide 31 mmol/L (23-31); Chloride 99 mmol/L (98-107); Glucose 115 mg/dL (83-110); Potassium 4.2 mmol/L (3.5-5.1); Protein, Total 6.7 g/dL (5.8-8.1); Sodium 137 mmol/L (136-145)
[2021-08-02] MEDS ORDERED: Magnesium 2 GM/50 ML BAG (IN WATER) ONE (17:39)
== END 2021-08-02 19:35 | disposition home or self-care (01) ==
LOC: ERS 16:16
DX: R00.2 Palpitations (principal); E03.9 Hypothyroidism, unspecified; I11.0 Hypertensive heart disease with heart failure; I50.9 Heart failure, unspecified; E78.5 Hyperlipidemia, unspecified; Z79.01 Long term (current) use of anticoagulants; Z79.82 Long term (current) use of aspirin; Z79.84 Long term (current) use of oral hypoglycemic drugs; Z79.899 Other long term (current) drug therapy; N17.9 Acute kidney failure, unspecified; E87.1 Hypo-osmolality and hyponatremia
CPT/HCPCS: 36415; 71045; 80048; 83880; 84443; 84484; 85025; 93005; 94760; 96365; J3475

== ENCOUNTER 2021-08-16 08:09 | Outpatient (CLI) | payer MEDICARE | END 2021-08-16 08:10 | disposition home or self-care (01) | LOC: RAD 08:09 | PROVIDERS: ATTEND Internal Medicine Critical Care Medicine | DX: R06.00 Dyspnea, unspecified (principal) | CPT/HCPCS: 71046 ==

== ENCOUNTER 2022-02-13 09:40 | Outpatient (CLI) | payer OTHER | END 2022-02-13 09:41 | disposition home or self-care (01) | LOC: RAD 09:40 | PROVIDERS: ATTEND Internal Medicine Critical Care Medicine | DX: R06.00 Dyspnea, unspecified (principal) | CPT/HCPCS: 71046 ==

== ENCOUNTER 2022-02-18 16:10 | Outpatient (CLI) | payer OTHER ==
[2022-02-18 17:40] LABS: Hemoglobin 13.7 g/dL (13.5-17.5); Mean Corpuscular HGB CONC 34.2 g/dL (32.0-36.0); Mean Corpuscular Hemoglobin 30.2 pg (27.0-33.0); Mean Corpuscular Volume 88.5 fl (81.2-95.1); Mean Platelet Volume 12.7 fl (7.4-10.4); Platelet Count 193 10x3/uL (150-450); RBC Distribution Width 14.8 % (11.5-14.5); Red Blood Cell (RBC) Count 4.53 10x6/uL (4.32-5.72); White Blood Cell (WBC) Count 8.5 10x3/uL (3.5-10.5)
[2022-02-18 17:51] LABS: PTT 34.1 sec (22.0-33.0); Prothrombin Time 11.2 sec (9.5-12.1)
[2022-02-18 17:52] LABS: Anion Gap 17 mmol/L (10-20); BUN (Urea Nitrogen) 27 mg/dL (8.4-25.7); Calc. Creatinine Clearance 0 mL/min (70-130); Calcium 9.2 mg/dL (7.8-10.44); Carbon Dioxide 27 mmol/L (23-31); Chloride 95 mmol/L (98-107); Estimated GFR 69; Glucose 154 mg/dL (83-110); Potassium 4.3 mmol/L (3.5-5.1); Sodium 135 mmol/L (136-145)
== END 2022-02-18 16:11 | disposition home or self-care (01) ==
LOC: LABBT 16:10
PROVIDERS: ATTEND Internal Medicine Cardiovascular Disease
DX: Z01.812 Encounter for preprocedural laboratory examination (principal); Z20.822 Contact with and (suspected) exposure to COVID-19
CPT/HCPCS: 80048; 85027; 85610; 85730; 87811

== ENCOUNTER 2022-02-21 06:39 | Day surgery (SDC) | payer OTHER ==
[2022-02-19 16:17] VITALS: BMI 28.8
[2022-02-21] MEDS ORDERED: ePHEDrine Sulfate 50 MG/10 ML VIAL ONE ×2 (07:30→07:53)
[2022-02-21] MEDS ORDERED: PROPOFOL 200 MG/20 ML VIAL ONE (07:30)
[2022-02-21] MEDS ORDERED: PROPOFOL 20 ML ONE (07:34)
== END 2022-02-21 09:02 | disposition home or self-care (01) ==
LOC: SDC 06:39
PROVIDERS: ATTEND Internal Medicine Cardiovascular Disease
PROC: B24BZZ4 Ultrasonography of Heart with Aorta, Transesophageal (ICD-10-PCS; principal; 2022-02-21)
DX: I48.19 Other persistent atrial fibrillation (principal); I48.4 Atypical atrial flutter; I11.0 Hypertensive heart disease with heart failure; I50.32 Chronic diastolic (congestive) heart failure; I08.1 Rheumatic disorders of both mitral and tricuspid valves; G47.30 Sleep apnea, unspecified; Z86.73 Personal history of transient ischemic attack (TIA), and cerebral infarction without residual deficits; Z79.01 Long term (current) use of anticoagulants; Z79.84 Long term (current) use of oral hypoglycemic drugs; Z79.899 Other long term (current) drug therapy; Z86.16 Personal history of COVID-19
CPT/HCPCS: 92960; 93312; J2704

== ENCOUNTER 2022-02-27 18:25 | Emergency (ER) | payer OTHER ==
[2022-02-27 19:14] LABS: #Eosinphils 0.1 thou/uL (0.0-0.7); #Lymphocytes 1.2 thou/uL (1.20-3.40); #Monocytes 0.9 thou/uL (0.11-0.59); %Basophils 0.4 % (0.0-1.0); %Eosinophils 1.8 % (0.0-10.0); %Lymphocytes 16.1 % (21.0-51.0); %Monocytes 12.8 % (0.0-10.0); %Neutrophils 68.9 % (42.0-75.0); Mean Corpuscular HGB CONC 34.7 g/dL (32.0-36.0); Mean Corpuscular Hemoglobin 32.3 pg (27.0-31.0); Mean Platelet Volume 10.1 fL (7.4-10.4); Platelet Count 194 thou/uL (130-400); RBC Distribution Width 14.3 % (11.5-14.5); Red Blood Cell (RBC) Count 4.02 mill/uL (4.70-6.10); White Blood Cell (WBC) Count 7.3 thou/uL (4.8-10.8)
[2022-02-27 19:33] LABS: ALT (SGPT) 53 U/L (8-55); AST (SGOT) 31 U/L (5-34); Albumin 3.5 g/dL (3.4-4.8); Alkaline Phosphatase 106 U/L (40-110); Anion Gap 16 mmol/L (10-20); BUN (Urea Nitrogen) 23 mg/dL (8.4-25.7); Bilirubin, Total 0.6 mg/dL (0.2-1.2); Calc. Creatinine Clearance 0 mL/min (70-130); Calcium 9.2 mg/dL (7.8-10.44); Carbon Dioxide 29 mmol/L (23-31); Chloride 97 mmol/L (98-107); Estimated GFR 78; Globulin 3.3 g/dL (2.4-3.5); Glucose 142 mg/dL (83-110); Potassium 4.5 mmol/L (3.5-5.1); Protein, Total 6.8 g/dL (5.8-8.1); Sodium 137 mmol/L (136-145)
[2022-02-27 21:13] LABS: Bilirubin Negative (Negative); Blood, Urine Negative (Negative); Clarity Clear (Clear); Glucose, Urine (Dipstick) Normal (Negative); Ketone, Urine Negative (Negative); Leukocyte Negative Leu/uL (Negative); Nitrite Negative (Negative); Protein, Urine (Dipstick) Negative (Neg-Trace); Specific Gravity, Urine 1.013 (1.002-1.036); Urobilinogen Normal mg/dL (Less than 2); pH, Urine 5.5 (5.0-9.0)
== END 2022-02-27 22:43 | disposition home or self-care (01) ==
LOC: ERS 18:25
DX: K92.2 Gastrointestinal hemorrhage, unspecified (principal); R31.9 Hematuria, unspecified; E11.9 Type 2 diabetes mellitus without complications; E78.5 Hyperlipidemia, unspecified; Z79.84 Long term (current) use of oral hypoglycemic drugs; Z79.899 Other long term (current) drug therapy
CPT/HCPCS: 80053; 81003; 85025; 99284

== ENCOUNTER 2022-07-08 15:15 | Outpatient (CLI) | payer OTHER | END 2022-07-08 15:16 | disposition home or self-care (01) | LOC: BICULT 15:15 | PROVIDERS: ATTEND Family Medicine | DX: I70.213 Atherosclerosis of native arteries of extremities with intermittent claudication, bilateral legs (principal) | CPT/HCPCS: 93923 ==

== ENCOUNTER 2022-09-02 17:18 | Inpatient (IN) | payer MEDICARE, OTHER ==
[2022-09-02 19:55] LABS: #Basophils 0.1 thou/uL (0.0-0.2); #Eosinphils 0.6 thou/uL (0.0-0.7); #Monocytes 0.7 thou/uL (0.11-0.59); #Neutrophils 4.3 thou/uL (1.40-6.50); %Eosinophils 7.6 % (0.0-10.0); %Lymphocytes 25.9 % (21.0-51.0); %Monocytes 9.3 % (0.0-10.0); %Neutrophils 56.2 % (42.0-75.0); Hemoglobin 14.1 g/dL (14.0-18.0); Mean Corpuscular Hemoglobin 33.3 pg (27.0-31.0); Mean Corpuscular Volume 97.9 fl (78.0-98.0); Mean Platelet Volume 11.1 fL (7.4-10.4); Platelet Count 168 10x3/uL (130-400); RBC Distribution Width 12.5 % (11.5-14.5); Red Blood Cell (RBC) Count 4.25 mill/uL (4.70-6.10); White Blood Cell (WBC) Count 7.7 10x3/uL (4.8-10.8)
[2022-09-02 20:22] LABS: ALT (SGPT) 26 U/L (8-55); AST (SGOT) 23 U/L (5-34); Albumin 3.8 g/dL (3.4-4.8); Alkaline Phosphatase 75 U/L (40-110); Anion Gap 15 mmol/L (10-20); BUN (Urea Nitrogen) 22 mg/dL (8.4-25.7); Bilirubin, Total 0.3 mg/dL (0.2-1.2); Calc. Creatinine Clearance 0 mL/min (70-130); Calcium 9.3 mg/dL (7.8-10.44); Carbon Dioxide 24 mmol/L (23-31); Chloride 102 mmol/L (98-107); Estimated GFR 79; Globulin 2.9 g/dL (2.4-3.5); Glucose 133 mg/dL (83-110); Potassium 4.5 mmol/L (3.5-5.1); Protein, Total 6.7 g/dL (5.8-8.1); Sodium 136 mmol/L (136-145)
[2022-09-02] MEDS ORDERED: Aspirin Chewable 81 MG TAB ONE (21:05)
[2022-09-02] MEDS ORDERED: Aspirin 325 MG TAB ONE (21:14)
[2022-09-02] MEDS ORDERED: Guaifenesin DM 100-10/5 ML UDCUP PO PRN (22:55)
[2022-09-02] MEDS ORDERED: Senokot S 8.6-50 MG TAB PO PRN (22:55)
[2022-09-02] MEDS ORDERED: Acetaminophen 325 MG TAB PO PRN (22:55)
[2022-09-02] MEDS ORDERED: Bisacodyl 5 MG TAB PO PRN (22:55)
[2022-09-02] MEDS ORDERED: Ondansetron PF 4 MG/2 ML Vial IVP PRN (22:55)
[2022-09-02] MEDS ORDERED: Ondansetron ODT 4 MG TAB PO PRN (22:55)
[2022-09-02] MEDS ORDERED: Acetaminophen 650 MG Suppository PR PRN (22:55)
[2022-09-03 00:37] VITALS: BMI 27.1
[2022-09-03 02:45] LABS: SARS-CoV-2 NAA Rapid Test Not Detected (NotDetected)
[2022-09-03 05:50] LABS: Hemoglobin A1c 6.7 % (4.0-6.0)
[2022-09-03 06:01] LABS: INR-International Normal Ratio 0.9; Prothrombin Time 12.7 sec (12.0-14.7)
[2022-09-03 06:02] LABS: PTT 32.5 sec (22.9-36.1)
[2022-09-03 06:04] LABS: Cardiac Risk 4.4 (Less than 4.5)
[2022-09-03] MEDS: Levothyroxine Sodium 112 MCG TAB PO SCH (06:16)
[2022-09-03] MEDS ORDERED: Magnevist 469MG/ML 20 ML VIAL ONE (08:50)
[2022-09-03] MEDS: Amiodarone 200 MG TAB PO SCH (08:53)
[2022-09-03] MEDS: FLUoxetine HCl 20 MG CAP PO SCH (08:54)
[2022-09-03] MEDS ORDERED: Torsemide 20 MG TAB PO SCH (09:00)
[2022-09-03] MEDS ORDERED: Spironolactone 25 MG TAB PO SCH (09:00)
[2022-09-03] MEDS ORDERED: Multivit, Therapeutic 1 TAB PO SCH (21:00)
[2022-09-03] MEDS ORDERED: Mirtazapine 15 MG Soltab PO SCH (21:00)
[2022-09-03] MEDS ORDERED: Atorvastatin Calcium 40 MG TAB PO SCH (21:00)
[2022-09-03] MEDS ORDERED: Cyanocobalamin (Vitamin B-12) 1,000 MCG TAB PO SCH (21:00)
[2022-09-03] MEDS ORDERED: Folic Acid 1 MG TAB PO SCH (21:00)
[2022-09-04] MEDS: Levothyroxine Sodium 112 MCG TAB PO SCH (05:26)
[2022-09-04] MEDS ORDERED: FLU VACC QS2022-23(65YR UP)/PF 240 MCG/0.7 ML SYRINGE IM ONE (09:00)
[2022-09-04] MEDS ORDERED: Aspirin Chewable 81 MG TAB PO SCH (09:00)
[2022-09-04] MEDS: Amiodarone 200 MG TAB PO SCH (09:57)
[2022-09-04] MEDS: FLUoxetine HCl 20 MG CAP PO SCH (10:01)
[2022-09-04 15:30] VITALS: BP 128/61; TEMP 97.6
[2022-09-05] MEDS ORDERED: Apixaban 5 MG TAB PO SCH (09:00)
== END 2022-09-04 20:20 | disposition home or self-care (01) | DRG 65 ==
LOC: ERS 17:18 → NEURO 21:31 → OBSVTOIN 09-04 11:54
PROVIDERS: ADMIT Student in an Organized Health Care Education/Training Program; ATTEND Internal Medicine
DX: I63.9 Cerebral infarction, unspecified (principal); I48.21 Permanent atrial fibrillation; I50.32 Chronic diastolic (congestive) heart failure; I69.954 Hemiplegia and hemiparesis following unspecified cerebrovascular disease affecting left non-dominant side; H53.9 Unspecified visual disturbance; E11.9 Type 2 diabetes mellitus without complications; G47.33 Obstructive sleep apnea (adult) (pediatric); E78.5 Hyperlipidemia, unspecified; I11.0 Hypertensive heart disease with heart failure; G93.89 Other specified disorders of brain; E53.8 Deficiency of other specified B group vitamins; Z79.890 Hormone replacement therapy; Z79.84 Long term (current) use of oral hypoglycemic drugs; Z79.899 Other long term (current) drug therapy
CPT/HCPCS: 36415; 36416; 70450; 70543; 70553; 71046; 80053; 80061; 83036; 84443; 85025; 85610; 85730; 93005; 93306; 93880; A9579; G0378

== ENCOUNTER 2023-03-11 09:03 | Outpatient (CLI) | payer OTHER | END 2023-03-11 09:04 | disposition home or self-care (01) | LOC: RAD 09:03 | PROVIDERS: ATTEND Internal Medicine Critical Care Medicine | DX: R06.00 Dyspnea, unspecified (principal) | CPT/HCPCS: 71046 ==

== ENCOUNTER 2024-04-30 13:05 | Outpatient (CLI) | payer OTHER | END 2024-04-30 13:06 | disposition home or self-care (01) | LOC: ULT 13:05 | PROVIDERS: ATTEND Family Medicine | DX: I73.9 Peripheral vascular disease, unspecified (principal) | CPT/HCPCS: 93923 ==

== ENCOUNTER 2024-07-09 12:19 | Outpatient (CLI) | payer OTHER | END 2024-07-09 12:20 | disposition home or self-care (01) | LOC: RAD 12:19 | PROVIDERS: ATTEND Family Medicine | DX: M25.551 Pain in right hip (principal); Z96.641 Presence of right artificial hip joint ==

== ENCOUNTER 2025-07-14 12:43 | Outpatient (CLI) | payer MEDICARE, OTHER | END 2025-07-14 12:44 | disposition home or self-care (01) | LOC: RAD 12:43 | PROVIDERS: ATTEND Family Medicine | DX: M53.3 Sacrococcygeal disorders, not elsewhere classified (principal); M47.26 Other spondylosis with radiculopathy, lumbar region | CPT/HCPCS: 72100; 72202 ==